=== PATIENT | female | born 1945 | race Caucasian/White ===

== ENCOUNTER 2017-12-16 18:32 | Emergency (ER) | payer OTHER ==
[~2017-12-16] VITALS: Ht 147.3 cm; Wt 68.5 kg
[~2017-12-16 18:32] MED LIST: ACET325; ACET325 PO; ALBIPROI INH; ALBU.083IS IH; ALBU3IS INH; ALBU90OI INH; ALBU90OI61; ALBU90OI61 INH; ALLO100; ALLO100 PO; ASPI81CH PO; ASPI81EC; ATOR10; ATOR10 PO; AZIT500 PO; Alavert D-12 A1 EACH PO; Aspirin EC325 MG PO; BECL40OI INH; BENZ100A; BENZ100A PO; CITA20 PO; CLOBET30L TOP; CLOP75 PO; DOCU100 PO; ENAL5; ENAL5 PO; ERYT.5TO BOTHEYES; ESCI10 PO; ESOM20; FLUSAL1005 IH; FLUSAL2505 IH; FURO20; FURO20 PO; FURO40; Flonase 0.05% N16 GM; GABA300 PO; GUAI600T33 PO; HYDACE5 PO; HYDACE5325 PO; K-Dur20 MEQ PO; LEVSOD150 PO; LEVSOD50; LOPE2C PO; Levaquin750 MG PO; METO2.5 PO; METO5 PO; MULVITMINF PO; NITR.3SL; NYST100P TOP; Norco 10-325 T1 EACH PO; OLME20; OMEP20ER PO; OXYC10ER; PANT40; PANT40 PO; PENVK500 PO; POTCHL20ER; POTCHL20ER PO; PRED20 PO; RXOXYACE PO; RXPENVK250 PO; SALMOI6.5; SULTRIDS PO; TIOT18 IH; TIOT18 INH; VERA240ER; VERA240ERA PO; Ventolin5 MG/1 ML INH; Verapamil ER200 MG PO; [UNRECOGNIZED DRUG - OTHER]
[2017-12-16] MEDS ORDERED: RISE5 (19:06)
[2017-12-16] MEDS ORDERED: ASPI81CH PO (19:07)
[2017-12-16] MEDS ORDERED: BUSP10 PO (19:08)
[2017-12-16] MEDS ORDERED: Nitrostat0.4 MG SL (19:09)
== END 2017-12-16 20:05 | disposition home or self-care (01) ==
LOC: ER 18:32
DX: M79.672 Pain in left foot (principal); I10 Essential (primary) hypertension; J44.9 Chronic obstructive pulmonary disease, unspecified; F17.200 Nicotine dependence, unspecified, uncomplicated; Z91.09 Other allergy status, other than to drugs and biological substances; Z88.5 Allergy status to narcotic agent; Z88.1 Allergy status to other antibiotic agents; Z88.0 Allergy status to penicillin; Z79.899 Other long term (current) drug therapy; Z79.82 Long term (current) use of aspirin
CPT/HCPCS: 73630; 99283

== ENCOUNTER 2019-03-21 12:45 | Emergency (ER) | payer OTHER ==
[~2019-03-21] VITALS: Ht 147.3 cm; Wt 73.9 kg
[~2019-03-21 12:45] MED LIST changes: -ALBU90OI61 INH; -ALLO100 PO; -ATOR10 PO; -CLOP75 PO; -ESCI10 PO; -FURO20 PO; -Flonase 0.05% N16 GM; -GABA300 PO; -LEVSOD150 PO; -PANT40; -POTCHL20ER PO; +RISE5; -TIOT18 IH; -Ventolin5 MG/1 ML INH; -Verapamil ER200 MG PO
[2019-03-21 13:18] LABS: BASOPHILS ABSOLUTE AUTO 0.04 K/mm3 (0.00-0.23); BASOPHILS PERCENT AUTO 1 % (0-2); EOSINOPHILS ABSOLUTE AUTO 0.17 K/mm3 (0.00-0.68); EOSINOPHILS PERCENT AUTO 2 % (0-6); Hematocrit 39.4 % (33.0-51.0); Hemoglobin 12.7 g/dL (11.5-16.0); IMMATURE GRAN ABSOLUTE AUTO 0.02 K/mm3 (0.00-0.10); IMMATURE GRAN PERCENT AUTO 0 % (0-1); LYMPHOCYTES PERCENT AUTO 18 % (21-46); MONOCYTES ABSOLUTE AUTO 0.52 K/mm3 (0.16-1.47); MONOCYTES PERCENT AUTO 7 % (4-13); Mean Corpuscular HGB 30.6 pg (26.0-34.0); Mean Corpuscular HGB Conc 32.2 g/dL (31.5-36.5); Mean Corpuscular Volume 95 fL (80-100); NEUTROPHILS ABSOLUTE AUTO 5.15 K/mm3 (1.96-9.15); NEUTROPHILS PERCENT AUTO 71 % (41-73); Platelet Count 252 K/mm3 (150-400); RDW Coefficient Variation 14.9 % (11.7-14.2); RDW Standard Deviation 51.8 fL (35.1-46.3); Red Blood Cell Count 4.15 M/mm3 (3.80-5.20)
[2019-03-21 13:28] LABS: Alanine Aminotransfer (ALT/SGP 13 U/L (12-78); Albumin/Globulin Ratio 0.9 (0.8-1.8); Alk Phos 59 U/L (50-136); Anion Gap 6 mmol/L (6-16); Aspartate Aminotrans (AST/SGOT 14 U/L (12-37); Bilirubin, Total 0.7 mg/dL (0.1-1.0); Blood Urea Nitrogen 10 mg/dL (8-24); Bun/Creatinine Ratio 13.8 (12.0-20.0); CO2, Blood 32 mmol/L (21-32); Calcium, Blood 8.4 mg/dL (8.5-10.1); Chloride, Blood 103 mmol/L (98-108); Creatinine, Blood 0.73 mg/dL (0.40-1.00); Globulin, Blood 3.4 g/dL (2.2-4.0); Glomerular Filtration Rate >60 (60-); Glucose, Blood 65 mg/dL (70-99); Sodium, Blood 141 mmol/L (136-145); Total Protein, Blood 6.4 g/dL (6.4-8.2)
== END 2019-03-21 15:00 | disposition left against medical advice (07) ==
LOC: ER 12:45
PROVIDERS: Emergency Medicine
DX: R19.7 Diarrhea, unspecified (principal); R10.9 Unspecified abdominal pain; Z88.5 Allergy status to narcotic agent; Z88.8 Allergy status to other drugs, medicaments and biological substances; Z88.0 Allergy status to penicillin; Z88.1 Allergy status to other antibiotic agents; Z79.899 Other long term (current) drug therapy; Z79.82 Long term (current) use of aspirin; I10 Essential (primary) hypertension; J44.9 Chronic obstructive pulmonary disease, unspecified; F17.210 Nicotine dependence, cigarettes, uncomplicated
CPT/HCPCS: 80053; 85025; 93005; 93010; 99284-25

== ENCOUNTER 2019-03-23 15:47 | Observation (INO) | payer OTHER ==
[~2019-03-23] VITALS: Ht 147.3 cm; Wt 74.3 kg
[2019-03-23 17:24] LABS: BASOPHILS ABSOLUTE AUTO 0.04 K/mm3 (0.00-0.23); BASOPHILS PERCENT AUTO 0 % (0-2); EOSINOPHILS ABSOLUTE AUTO 0.27 K/mm3 (0.00-0.68); EOSINOPHILS PERCENT AUTO 3 % (0-6); Hematocrit 42.4 % (33.0-51.0); Hemoglobin 13.7 g/dL (11.5-16.0); IMMATURE GRAN ABSOLUTE AUTO 0.05 K/mm3 (0.00-0.10); IMMATURE GRAN PERCENT AUTO 1 % (0-1); LYMPHOCYTES ABSOLUTE AUTO 1.54 K/mm3 (0.84-5.20); LYMPHOCYTES PERCENT AUTO 15 % (21-46); MONOCYTES ABSOLUTE AUTO 0.73 K/mm3 (0.16-1.47); MONOCYTES PERCENT AUTO 7 % (4-13); Mean Corpuscular HGB 30.8 pg (26.0-34.0); Mean Corpuscular HGB Conc 32.3 g/dL (31.5-36.5); Mean Corpuscular Volume 95 fL (80-100); NEUTROPHILS ABSOLUTE AUTO 8.01 K/mm3 (1.96-9.15); NEUTROPHILS PERCENT AUTO 75 % (41-73); Platelet Count 308 K/mm3 (150-400); RDW Coefficient Variation 14.6 % (11.7-14.2); RDW Standard Deviation 51.4 fL (35.1-46.3); Red Blood Cell Count 4.45 M/mm3 (3.80-5.20); White Blood Cell Count 10.64 K/mm3 (4.00-11.30)
[2019-03-23 17:46] LABS: Alanine Aminotransfer (ALT/SGP 15 U/L (12-78); Albumin, Blood 3.5 g/dL (3.4-5.0); Alk Phos 72 U/L (50-136); Anion Gap 5 mmol/L (6-16); Aspartate Aminotrans (AST/SGOT 16 U/L (12-37); Bilirubin, Total 0.7 mg/dL (0.1-1.0); Blood Urea Nitrogen 12 mg/dL (8-24); Bun/Creatinine Ratio 13.3 (12.0-20.0); CO2, Blood 33 mmol/L (21-32); Calcium, Blood 9.1 mg/dL (8.5-10.1); Chloride, Blood 101 mmol/L (98-108); Creatinine, Blood 0.91 mg/dL (0.40-1.00); Globulin, Blood 3.6 g/dL (2.2-4.0); Glomerular Filtration Rate >60 (60-); Glucose, Blood 131 mg/dL (70-99); Potassium, Blood 3.4 mmol/L (3.5-5.5); Sodium, Blood 139 mmol/L (136-145); Total Protein, Blood 7.1 g/dL (6.4-8.2)
[2019-03-23 19:21] LABS: Campylobacter Sp Not Detected (NOT DETECT); E. Coli O157 Not Detected (NOT DETECT); Enteroaggregative E. coli-EAEC Detected (NOT DETECT); Plesiomonas Shigelloides Not Detected (NOT DETECT); Salmonella Sp Not Detected (NOT DETECT); Shiga Toxin-prod E. coli-STEC Not Detected (NOT DETECT); Shigella/Enteroin E. coli-EIEC Not Detected (NOT DETECT); Vibrio Cholerae Not Detected (NOT DETECT); Vibrio Sp Not Detected (NOT DETECT); Yersinia Enterocolitica Not Detected (NOT DETECT)
[2019-03-23 19:22] LABS: Adenovirus F 40/41 Not Detected (NOT DETECT); Astrovirus Not Detected (NOT DETECT); Cryptosporidium Not Detected (NOT DETECT); Cyclospora Cayetanensis Not Detected (NOT DETECT); Entamoeba Histolytica Not Detected (NOT DETECT); Enteropathogenic E. coli-EPEC Detected (NOT DETECT); Enterotoxigenic E. coli-ETEC Not Detected (NOT DETECT); Giardia Lamblia Not Detected (NOT DETECT); Norovirus GI/GII Not Detected (NOT DETECT); Rotavirus A Not Detected (NOT DETECT); Sapovirus Not Detected (NOT DETECT)
[2019-03-23] MEDS ORDERED: Isosorbide Mono30 MG PO (20:30)
[2019-03-23] MEDS ORDERED: CLOP75 PO (20:30)
[2019-03-23] MEDS ORDERED: CHOL10002 PO (20:31)
[2019-03-23] MEDS ORDERED: SPIRIVA RESPIMAT4 GM INH (21:12)
[2019-03-23] MEDS ORDERED: Synthroid88 MCG PO (21:13)
[2019-03-23] MEDS ORDERED: FURO80 PO (21:14)
[2019-03-23] MEDS ORDERED: ALLO100 PO (21:14)
[2019-03-23] MEDS ORDERED: GABA300 PO (21:15)
[2019-03-23] MEDS ORDERED: ALBU90OI61 INH (21:15)
[2019-03-23] MEDS ORDERED: ATOR40TA PO (21:15)
[2019-03-23] MEDS ORDERED: POTCHL20ER PO (21:16)
[2019-03-23] MEDS ORDERED: METO2.5 PO (21:16)
[2019-03-23] MEDS ORDERED: Verapamil ER200 MG PO (21:17)
[2019-03-23] MEDS ORDERED: Aspirin EC81 MG PO (21:17)
[2019-03-23] MEDS ORDERED: PANT40 PO (21:17)
[2019-03-23] MEDS ORDERED: BUSP10 PO (21:18)
[2019-03-23] MEDS ORDERED: Advair Hfa 115-12 GM INH (21:21)
[2019-03-23] MEDS ORDERED: ESCI10 PO (21:23)
[2019-03-23] MEDS ORDERED: Ferrous Sulfat325 M2 PO (21:24)
[2019-03-23] MEDS ORDERED: DOCU100 PO (21:25)
[2019-03-23] MEDS ORDERED: Nitrostat0.4 MG SL (21:26)
[2019-03-23] MEDS ORDERED: Flonase 0.05% N16 GM (21:28)
[2019-03-23] MEDS ORDERED: Clotrimazole-Be15 GM TOP (21:32)
[2019-03-23] MEDS ORDERED: ALBU2.5V5 NEB (21:32)
--- NOTE | 2019-03-24 05:48 | NUR ---
SHIFT SUMMARY PT ALERT AND ORIENTED. ADMITTED FOR C-DIFF/COLITIS. PT NOT WANTING TO STAY HERE AT FIRST DEMANDING TO GO OUTSIDE FOR A SMOKE. WARMS UP LATER, DOES REFUSE 2ND DOSE OF IV POTASSIUM. PT C/O GENERALIZED PAIN AND MEDICATED WITH FENTANYL X1. PT SLEPT VERY LITTLE. BRIEFS CHANGED OF INCONTINENT URINE. NO STOOLS SINCE BEING IN THE ER. PT HAS YEASTY AREAS UNDER PANNUS AND BREASTS, ALSO IN AVELINA/GROIN AREA. PT WEAK DUE TO CHRONIC DIARRHEA. STATES SHE HAS HAD IT FOR THE LAST 12 YEARS. PT HAS PRODUCTIVE COUGH PRODUCING THICK BERNAL/GREEN SPUTUM. PT WITH BRUISING SCATTERED DUE TO FALLS. WILL CONTINUE TO MONITOR.
[2019-03-24 05:50] LABS: Hematocrit 36.7 % (33.0-51.0); Hemoglobin 11.7 g/dL (11.5-16.0); Mean Corpuscular HGB 30.3 pg (26.0-34.0); Mean Corpuscular HGB Conc 31.9 g/dL (31.5-36.5); Mean Corpuscular Volume 95 fL (80-100); Mean Platelet Volume 9.9 fL (9.1-12.4); Platelet Count 251 K/mm3 (150-400); RDW Coefficient Variation 14.7 % (11.7-14.2); RDW Standard Deviation 51.5 fL (35.1-46.3); Red Blood Cell Count 3.86 M/mm3 (3.80-5.20); White Blood Cell Count 8.03 K/mm3 (4.00-11.30)
[2019-03-24 06:12] LABS: Anion Gap 1 mmol/L (6-16); Blood Urea Nitrogen 16 mg/dL (8-24); Bun/Creatinine Ratio 18.8 (12.0-20.0); CO2, Blood 32 mmol/L (21-32); Calcium, Blood 8.1 mg/dL (8.5-10.1); Chloride, Blood 107 mmol/L (98-108); Creatinine, Blood 0.85 mg/dL (0.40-1.00); Glomerular Filtration Rate >60 (60-); Glucose, Blood 110 mg/dL (70-99); Potassium, Blood 4.1 mmol/L (3.5-5.5); Sodium, Blood 140 mmol/L (136-145)
--- NOTE | 2019-03-24 09:07 | NUR ---
PT AROUSED FOR BF. WHEN ATTEMPT TO DO PHYSICAL ASSESSMENT SHE REFUSES, REFUSES AM MEDS. STATE "GO SOMEWHERE ELSE, YOU HAVE OTHER PT'S WHO NEED YOU", WHEN ATTEMPT TO ENCOURAGE HER TO TAKE MEDS & ALLOW ASSESSMENT SHE BECOME VERY ANGRY, STATE SHE WILL NOT ALLOW, YELLS "GET OUT OF MY ROOM". ENCOURAGED HER TO CALL IF SHE CHANGES HER MIND, WILL NOTIFY DR & TUBING TESTER.
--- NOTE | 2019-03-24 10:48 | NUR ---
POLO COACH IN TO ROUND ON PT & ATTEMPT TO DISCERN WHY PT IS ANGRY & REFUSING MEDS/ASSESSMENTS. STATE PT ALLOWED HER & FEMALE TEST OPERATOR TO CHANGE ATTENDS HOWEVER PT THREATENED TO HIT DURING PROCEDURE. DISCOVERED THAT PT IS UPSET WITH CARDIAC DIET. SHE CONTINUES TO REFUSE MEDS & ASSESSMENT. DR ASTUDILLO NOTIFIED, STATE SHE WILL BE IN TO SEE PT & ADDRESS CONCERNS & DIET @ THAT TIME.
--- NOTE | 2019-03-24 12:26 | NUR ---
PT CONTINUES TO REFUSE MEDS & TX. STATE "GO AWAY", REFUSE ENTEROSTOMAL NURSE ALSO. DR ASTUDILLO AWARE. FACING SLITTER STATE PT DECLINE CARDIAC DIET LUNCH TRAY, STATES "GARBAGE", "THIS PLACE IS A DUMP".
--- NOTE | 2019-03-24 13:47 | NUR ---
DR ASTUDILLO IN TO SEE PT, ADDRESS CONCERNS, CHANGE DIET TO REGULAR. PT STATE WILL ACCEPT TX. SHE IS ABLE TO CHANGE ATTITUDE, PLEASANT/COOPERATIVE @ THIS TIME. ACCEPTS ORAL VANCO, ALLOWS ASSESSMENT. CALLED COORDINATOR VOLUNTEER SERVICES TO ADDRESS FOOD CHOICES & MENU, LUNCH TRAY PROVIDED. PT SEEMS SATISFIED @ THIS TIME.
--- NOTE | 2019-03-24 15:47 | NUR ---
PT CALL FOR ATTENDS CHANGE, HOWEVER WHEN ATEMPT TO LAY PT BACK IN BED, SHE BECOMES ANGRY, REFUSES. ATTEMPTS TO CONSOLE HER & PLEASE HER UNSUCCESSFUL, SHE STATE "GET OUT". INFORMED OF RISK FOR FURTHER SBD HOWEVER SHE REFUSES TO DISCUSS. CIGARETTE CARTON SEALER NOTIFIED, STATE WILL GIVE HER SOME TIME & RE-ATTEMPT LATER.
--- NOTE | 2019-03-24 16:22 | NUR ---
MEDICAL RECORDS DIRECTOR IN TO ENCOURAGE PT TO ALLOW ATTENDS CHANGE HOWEVER STATE PT CONTINUES TO REFUSE, WILL NOT TALK & DEMANDS HER TO BE LEFT ALONE. WILL CONTINUE TO ENCOURAGE PT & ATTEMPT TO SATISFY.
--- NOTE | 2019-03-24 18:14 | NUR ---
SUMMARY PT IS A/O X4, IRRITABLE, DIFFICULT TO SATISFY @ X'S, @ OTHER X'S PLEASANT, COOPERATIVE. SHE BECAME VERY UPSET THIS AM R/T CARDIAC DIET ORDER, REFUSED TO EAT, REFUSED MEDS, ASSESSMENT & ATTENDS CHANGE. PHARMACEUTICAL REPRESENTATIVE WAS FINALLY ABLE TO GET HER TO ALLOW ATTENDS CHANGE, INCONT DIARRHEA. SHE IS C-DIFF+. DR ASTUDILLO CAME TO SEE HER AFTER LUNCH, HAD LONG TALK WITH HER. PT STATE SATISFACTION WITH DIET CHANGE, WAS ABLE TO FILL OUT MENU WITH HOME HEALTH ASSISTANT. AGREED TO TAKE SOME OF HER MEDS INCLUDING ORAL VANCO. LATER IN THE AFTERNOON SHE CALLED FOR ATTENDS CHANGE, WHEN WE ATTEMPTED TO LOWER HEAD OF BED SHE BECAME IRRITATED, ANGRY. AGAIN SHE REFUSED TREATMENT, REQUEST STAFF LEAVE HER ALONE, LEAVE ROOM. CHARGE ALSO UNSUCCESSFUL IN ATTEMPTS TO PROVIDE CARE. @ DINNER PT AGAIN SEEMS RECEPTIVE, ACCEPTS DINNER, STATE FOOD SATISFACTORY. ASKED IF SHE WOULD ALLOW US TO CHANGE ATTENDS SHE STATE "WE'LL SEE", REFUSES @ THIS TIME, WILL ATTEMPT AGAIN PRIOR TO SHIFT CHANGE. VSS.
--- NOTE | 2019-03-25 07:11 | NUR ---
Rn summary: Patient is alert and oriented. Pt has been cooperative most of the night. Did refuse some medications due to the fact they are timed different than she is used to. Explained why times would be different, pt still refused meds. Pls see emar. Pt does not like head of bed down, did allow it for repositioning up in bed. Pt has been incontinent of urine, urine is dk and has a very strong odor. Pt has had no stools this shift. Pt has a mepilex to coccyx. Pt skin to buttocks is purplish. Pt was floated on pillows, pt states can not lie on left side. Pt medicated x1 with 25mg of fentanyl with good relief at 0253 and slept until 0630. Call light in reach. Report to Joaquin Harris on day shift.
[2019-03-25] MEDS ORDERED: VITAMIN D50000 UNIT PO (08:15)
--- NOTE | 2019-03-25 12:44 | NUR ---
PT TO IMAGING.
--- NOTE | 2019-03-25 17:43 | NUR ---
SHIFT SUMMARY- PT A/O, PT HAS BEEN COOPERATIVE T/O THE DAY BUT DOES HAVE MOMENTS OF IRRITABILITY AND RUDE TO STAFF. LS COARSE, ON 2L WHICH IS PT'S BASELINE, PRODUCTIVE COUGH WHICH PT REPORTS SHE HAS HAD FOR YEARS. PT STARTED ON PERCOCET FOR PAIN "ALL OVER" PT REPORTS IMPROVEMENT. CT SCAN COMPLETED TODAY DUE TO RECENT FALL AND BRUISING TO LEFT HIP. 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 PT REPORTS SHE LIVES ALONE AND HAS A CAREGIVER 5 DAYS A WEEK FOR 5 HOURS AND DOES HAVE KIDS THAT CHECK IN ON HER BUT REPORTS SHE CAN NO LONGER TRANSFER HER SELF INDEP INTO HER W/C. PT EVAL ORDERED BUT NOT SEEN TODAY. YEAST TO GROIND AND UNDER BREAST, NYSTATIN ORDERED AND APPLIED. PT INCONT OF URINE, COCCYX RED/ PURPLE IN COLOR, MEPILEX PLACED. NO STOOLS THIS SHIFT. NO OTHER ACUTE CHANGES THIS SHIFT.
--- NOTE | 2019-03-25 18:04 | NUR ---
PATIENTS ATTENDS WERE CHECKED AND THEY WERE CLEAN AND DRY. PATIENT WAS ALSO REPOSITONED.
--- NOTE | 2019-03-25 18:14 | NUR ---
BP NOTED TO BE 94/49, PT REPORTS THAT THIS IS NORMAL FOR HER TO DROP INTO THE 90'S. WILL CONT TO MONITOR. PT ASYMPTOMATIC.
--- NOTE | 2019-03-26 07:24 | NUR ---
Rn summary: Patient was up to BSC at beginning of shift. Pt has difficulty bearing wt. Pt states she is mean and contankerous and she likes control of all her care. Pt actually has rested well this shift but woke up with significant pain this am. Medicated with percocet 1 tab this am for pain from her mid back down. Pt was incontinent of urine, urine is concentrated and has a strong odor. Wears attends. Call lght in reach. Continues on 2 liters O2 which is her baseline. Plan for PT eval today.
--- NOTE | 2019-03-26 19:15 | NUR ---
NO ACUTE CHANGES NOTED THIS SHIFT, PT COOPERATIVE WITH CARE T/O THE SHIFT, NO C/O PAIN. WILL CONTINUE TO MONITOR AND REPORT TO ONCOMING RN
--- NOTE | 2019-03-26 23:29 | NUR ---
2255 PT ADMITTED TO ROOM 334 PER CART FROM ER WITH AND DAUGHTER AT SIDE, ORIENTED TO ROOM.
--- NOTE | 2019-03-27 00:56 | NUR ---
THIS NURSE AND YENI CALLED TO ROOM TO CHANGE PATIENT AND REPOSITION, PT CUSSING AND SWEARING AT STAFF IN LOUD VOICE AND STATED, "I DON'T GIVE A GOD DAMN ABOUT ANYTHING HERE IN THIS HOSPITAL". PT INITIALLY DESIRED TO LAY IN DIRTY ATTENDS DIAPERS WITH LARGE AMOUNT BROWN, MUCOUS STOOL WHICH SHE FINALLY RELENTED TO LETTING STAFF CHANGE AND REPOSITION HER ONTO RIGHT SIDE, LINEN CHANGED. PT REMINDED BY THIS NURSE TO AVOID SWEARING AT STAFF WHICH SHE THEN REMARKED, "I DON'T CARE" IN LOUD VOICE.
--- NOTE | 2019-03-27 05:18 | NUR ---
SHIFT SUMMARY: 73 Y/O FEMALE HAD RESTLESS NIGHT AT TIMES WITH PATIENT VERY VOCAL WITH LOUD SWEARING (PATIENT APOLGIZED TO THIS NURSE AT END OF SHIFT FOR BEHAVIOR DISPLAYED). PT HAD BACK RATED 6/10 WITH OXYCODONE 10/325 MG X 1 GIVEN WITH RELIEF FELT. PT INCONTINENT MUCOUS BROWN STOOL X 3. PT ALERT AND ORIENTED X 4, WEARING O2 AT 3L/M PER NASAL CANNULA. PTS BED ALARM APPLIED, BED LOW POSITION, CALL LIGHT AT SIDE. CONTACT PRECAUTIONS MAINTAINED. PT REQUIRED 100% ASSISTANCE TO ROLE BACK AND FORTH BY STAFF WITH ALL INCONTINENCE EPISODES.
[2019-03-27] MEDS ORDERED: ACET325 PO (15:04)
[2019-03-27] MEDS ORDERED: Lomotil Tablet1 EACH PO (15:05)
[2019-03-27] MEDS ORDERED: Percocet 10-321 EACH PO (15:05)
--- NOTE | 2019-03-27 16:44 | NUR ---
REPORT TO REPORT CALLED TO CARMINA WEINSTEIN AT [facility]. QUESTIONS ANSWERED AND PHONE NUMBER LEFT IN CASE OF FURTHER QUESTIONS.
--- NOTE | 2019-03-27 17:52 | NUR ---
DISCHARGE TO [facility] PT REFUSING TO GET UP TO WHEELCHAIR, YELLING AND CURSING AT STAFF, DID NOT WANT TO BE DISCHARGED. EARLIER SHE WAS EXPRESSING READINESS FOR DISCHARGE. TRANSPORTER BROUGHT A GURNEY AND PT WAS TRANSFERRED. SHE WAS POLITE AND CONVERSING WITH TRANSPORTER WHEN SHE LEFT. PERSONAL BELONGINGS, HER W/C AND PORTABLE O2 CONCENTRATOR WITH PT.
== END 2019-03-27 17:35 ==
LOC: ER 15:47 → MEDS 21:10
PROVIDERS: Emergency Medicine; Nurse Practitioner Acute Care; Physician Assistant; ADMIT Internal Medicine
DX: A04.72 Enterocolitis due to Clostridium difficile, not specified as recurrent (principal); A04.4 Other intestinal Escherichia coli infections; F32.9 Major depressive disorder, single episode, unspecified; K21.9 Gastro-esophageal reflux disease without esophagitis; E03.9 Hypothyroidism, unspecified; J44.9 Chronic obstructive pulmonary disease, unspecified; I11.0 Hypertensive heart disease with heart failure; I50.32 Chronic diastolic (congestive) heart failure; Z79.899 Other long term (current) drug therapy; Z79.82 Long term (current) use of aspirin; Z79.02 Long term (current) use of antithrombotics/antiplatelets; Z88.1 Allergy status to other antibiotic agents; Z91.041 Radiographic dye allergy status; Z88.0 Allergy status to penicillin; F17.210 Nicotine dependence, cigarettes, uncomplicated; I25.10 Atherosclerotic heart disease of native coronary artery without angina pectoris
CPT/HCPCS: 0097U; 36415; 71045; 71250; 72131; 72192; 74176; 80048; 80053; 83690; 83880; 84145; 85025; 85027; 87324; 93005; 93010; 94760; 96361; 96365; 96372; 96375; 96376; 97110; 97162; 97530; 99285-25; G0378; J1650; J3010; J3480; J7030

== ENCOUNTER 2019-12-18 13:59 | Inpatient (IN) | payer OTHER ==
[~2019-12-18] VITALS: Ht 152.4 cm; Wt 63.1 kg
[~2019-12-18 13:59] MED LIST changes: +ALBU2.5V5 NEB; +ALBU90OI61 INH; +ALLO100 PO; +ATOR40TA PO; +Advair Hfa 115-12 GM INH; +Aspirin EC81 MG PO; +BUSP10 PO; +CHOL10002 PO; +CLOP75 PO; +Clotrimazole-Be15 GM TOP; +ERGO50000 PO; +ESCI10 PO; +FURO80 PO; +Ferrous Sulfat325 M2 PO; +Flonase 0.05% N16 GM; +GABA300 PO; +Isosorbide Mono30 MG PO; +Lomotil Tablet1 EACH PO; +Nitrostat0.4 MG SL; +POTCHL20ER PO; +Percocet 10-321 EACH PO; +Percocet 5-3251 EACH PO; +SPIRIVA RESPIMAT4 GM INH; +Synthroid88 MCG PO; +Verapamil ER200 MG PO
[2019-12-18 18:10] LABS: BASOPHILS ABSOLUTE AUTO 0.04 K/mm3 (0.00-0.23); BASOPHILS PERCENT AUTO 1 % (0-2); EOSINOPHILS ABSOLUTE AUTO 0.33 K/mm3 (0.00-0.68); EOSINOPHILS PERCENT AUTO 4 % (0-6); Hematocrit 38.7 % (33.0-51.0); Hemoglobin 12.7 g/dL (11.5-16.0); IMMATURE GRAN ABSOLUTE AUTO 0.02 K/mm3 (0.00-0.10); IMMATURE GRAN PERCENT AUTO 0 % (0-1); LYMPHOCYTES ABSOLUTE AUTO 2.45 K/mm3 (0.84-5.20); LYMPHOCYTES PERCENT AUTO 30 % (21-46); MONOCYTES ABSOLUTE AUTO 0.48 K/mm3 (0.16-1.47); MONOCYTES PERCENT AUTO 6 % (4-13); Mean Corpuscular HGB 30.5 pg (26.0-34.0); Mean Corpuscular HGB Conc 32.8 g/dL (31.5-36.5); Mean Corpuscular Volume 93 fL (80-100); Mean Platelet Volume 9.8 fL (9.1-12.4); NEUTROPHILS ABSOLUTE AUTO 4.77 K/mm3 (1.96-9.15); NEUTROPHILS PERCENT AUTO 59 % (41-73); Platelet Count 356 K/mm3 (150-400); RDW Coefficient Variation 13.4 % (11.7-14.2); RDW Standard Deviation 45.4 fL (35.1-46.3); Red Blood Cell Count 4.16 M/mm3 (3.80-5.20); White Blood Cell Count 8.09 K/mm3 (4.00-11.30)
[2019-12-18 18:25] LABS: International Normalized Ratio 0.96; Prothrombin Time Results 10.3 Sec (9.7-11.5)
[2019-12-18 18:29] LABS: Alanine Aminotransfer (ALT/SGP 10 U/L (12-78); Albumin/Globulin Ratio 0.8 (0.8-1.8); Alk Phos 72 U/L (50-136); Anion Gap 6 mmol/L (6-16); Aspartate Aminotrans (AST/SGOT 19 U/L (12-37); Bilirubin, Total 0.3 mg/dL (0.1-1.0); Blood Urea Nitrogen 24 mg/dL (8-24); CO2, Blood 26 mmol/L (21-32); Calcium, Blood 9.1 mg/dL (8.5-10.1); Chloride, Blood 107 mmol/L (98-108); Creatinine, Blood 0.75 mg/dL (0.40-1.00); Globulin, Blood 3.9 g/dL (2.2-4.0); Glomerular Filtration Rate >60 (60-); Glucose, Blood 138 mg/dL (70-99); Potassium, Blood 3.6 mmol/L (3.5-5.5); Sodium, Blood 139 mmol/L (136-145); Total Protein, Blood 6.9 g/dL (6.4-8.2)
--- NOTE | 2019-12-18 22:05 | NUR ---
PATIENT ARRIVED TO ICU 9 VIA BED FROM TRAILER MECHANIC POST THROMBECTOMY TO LEFT LEG AND IVC FILTER ACCESS RIGHT GROIN. PATIENT PLACED ON ICU MONITORS. PATIENT AWAKE AND ABLE TO ANSWER ADMIT QUESTIONS, BECOMING AGITATED WITH QUESTIONS AT TIMES. PATIENT REQUESTING SOMETHING TO EAT, BUT NOT WANTING WHAT WE HAVE AVAILABLE IN PANTRY, EXPLAINED TO PATIENT THAT THE KITCHEN IS CLOSED, PATIENT BECOMING ANGRY AND REFUSING ALL OFFERS OF FOOD AND DRINK, PATIENT VERBALIZED "I DON'T WANT ANYTHING THAN" PATIENT EATING COOKIES, AND BOTTLED WATER FROM HER PURSE, "I DON'T WANT ANYTHING FROM YOU". HEPARIN DRIP STARTED PER TRAILER MECHANIC AND DOCTOR EMMANUEL.
--- NOTE | 2019-12-18 23:00 | NUR ---
PATIENT C/O BACK AND HIP PAIN, REFUSING TYLENOL. CRISTOFER SOLDERER TORCH CALLED AND PERCOCET PO ORDERED. PATIENT REF MEDICATION AT THIS TIME. "I JUST WANT TO GO HOME" PATIENT DENIES URGE TO URINATE AT THIS TIME. ATTENDS IN PLACE. RIGHT GROIN AND LEFT KNEE SITES REMAIN STABLE.
[2019-12-18] MEDS ORDERED: FURO40 PO (23:09)
[2019-12-18] MEDS ORDERED: GABA300 PO (23:09)
--- NOTE | 2019-12-19 01:00 | NUR ---
PATIENT SLEEPING WITH 2L/NC IN PLACE. BIOX 88% WHILE SLEEPING ON RA. AWAKENS EASILY TO SLIGHT STIMULI. BOTH SITES REMAIN UNCHANGED
--- NOTE | 2019-12-19 04:20 | NUR ---
PATIENT AWAKE C/O PAIN, AT FIRST REFUSING ASSISTANCE WITH REPOSITIONING AND REFUSING PAIN MEDICATION. DENIES URGE TO URINATE AT THIS TIME. PATIENT ANGRY REGARDING HEART MONITOR AND BP CUFF, CUFF CHANGED TO WRIST CUFF AND CORDS ADJUSTED TO PREVENT PULLING. PATIENT AGREEING TO REPOSITIONING, AND GIVEN PERCOCET. PATIENT ALLOWING LEFT LEG TO BE ELEVATED ON PILLOW IN ATTEMPT TO RELIEVE PAIN. SNACK OF PEACHES GIVEN. GROIN AND KNEE SITE REMAIN STABLE
[2019-12-19 05:21] LABS: BASOPHILS ABSOLUTE AUTO 0.05 K/mm3 (0.00-0.23); BASOPHILS PERCENT AUTO 1 % (0-2); EOSINOPHILS ABSOLUTE AUTO 0.32 K/mm3 (0.00-0.68); EOSINOPHILS PERCENT AUTO 5 % (0-6); Hemoglobin 11.6 g/dL (11.5-16.0); IMMATURE GRAN ABSOLUTE AUTO 0.02 K/mm3 (0.00-0.10); IMMATURE GRAN PERCENT AUTO 0 % (0-1); LYMPHOCYTES ABSOLUTE AUTO 1.57 K/mm3 (0.84-5.20); LYMPHOCYTES PERCENT AUTO 24 % (21-46); MONOCYTES ABSOLUTE AUTO 0.55 K/mm3 (0.16-1.47); MONOCYTES PERCENT AUTO 8 % (4-13); Mean Corpuscular HGB 30.1 pg (26.0-34.0); Mean Corpuscular HGB Conc 32.2 g/dL (31.5-36.5); Mean Corpuscular Volume 94 fL (80-100); Mean Platelet Volume 9.5 fL (9.1-12.4); NEUTROPHILS ABSOLUTE AUTO 4.05 K/mm3 (1.96-9.15); NEUTROPHILS PERCENT AUTO 62 % (41-73); Platelet Count 293 K/mm3 (150-400); RDW Coefficient Variation 13.5 % (11.7-14.2); RDW Standard Deviation 46.1 fL (35.1-46.3); Red Blood Cell Count 3.85 M/mm3 (3.80-5.20); White Blood Cell Count 6.56 K/mm3 (4.00-11.30)
[2019-12-19 05:51] LABS: Anion Gap 4 mmol/L (6-16); Blood Urea Nitrogen 21 mg/dL (8-24); Bun/Creatinine Ratio 26.1 (12.0-20.0); CO2, Blood 29 mmol/L (21-32); Calcium, Blood 8.5 mg/dL (8.5-10.1); Chloride, Blood 107 mmol/L (98-108); Creatinine, Blood 0.81 mg/dL (0.40-1.00); Glomerular Filtration Rate >60 (60-); Glucose, Blood 110 mg/dL (70-99); Sodium, Blood 140 mmol/L (136-145)
[2019-12-19 05:58] LABS: Thyroid Stimulating Hormone 0.101 uIU/mL (0.360-4.800)
--- NOTE | 2019-12-19 06:42 | NUR ---
PATIENT RESTING QUIETLY WATCHING TV. ASKING WHEN THE DOCTORS MAKE ROUNDS SO SHE CAN GO HOME. CONTINUES TO DENIES URGE TO URINATE, ATTENDS REMAIN DRY. PATIENT APPEARS MORE COMFORTABLE CONTINUES TO RATE PAIN 9/10. RIGHT GROIN AND LEFT KNEE SITE REMAIN STABLE. HEPARIN ADJUSTED PER PHARMACY.
--- NOTE | 2019-12-19 07:26 | NUR ---
ASSUMED CARE: PT RESTING IN BED, HUNCHED OVER, STATES SHE CAN'T GET COMFORTABLE. OFFERED TO GET HER REPOSITIONED IN BED AND SHE BEGAN YELLING AT STAFF. WHEN OFFERING INTERVENTIONS SHE BEGAN TO COVER HER EARS. STATED SHE WANTS TO GO HOME AND THAT SHE'S HUNGRY. INFORMED THAT BREAKFAST WAS COMING SOON AND SHE STATED THAT THEY NEVER HAVE ANYTHING SHE LIKES ANYWAY. LEFT LEG WITH FAINT PULSES, RED BUT NIGHT RN REPORTS SWELLING LESS. DENIES NEEDS AT THIS TIME.
--- NOTE | 2019-12-19 08:12 | NUR ---
DR ADAMS HERE TO SEE PT, AWARE OF PT REFUSING TREATMENTS AND CARE AND WANTS TO GO HOME. WILL SEE WHAT DR BENITEZ THINKS.
--- NOTE | 2019-12-19 08:30 | NUR ---
CAME INTO ROOM WITH PT'S MEDS. PT STATED SHE NEEDED IMDUR BUT STATED SHE HAS HAD AN EMPTY STOMACH. OFFERED FRUIT CUP SINCE SHE REFUSED BREAKFAST THEN PT STATED THAT SHE DIDN'T WANT ANYTHING AND JUST WANTED TO GO HOME. PT STATED SHE NEEDED HER LOMOTIL AND WHEN ASKED IF SHE WANTED THAT WELL SHE SAID "FORGET IT. I DON'T WANT ANYTHING." THIS RN TOLD PT THAT SHE NEEDED TO COMMUNICATE HER NEEDS BECAUSE I CANNOT READ HER MIND AND ANYTIME I ASK A QUESTION SHE SHUTS DOWN. SHE SAID SHE SHUTS DOWN AT HOME TOO AND DOESN'T COMMUNICATE WELL. ASKED HER WHAT WE NEEDED TO DO SO THAT WE WOULD HAVE GOOD COMMUNICATION TODAY AND SHE SAID "NOTHING. I JUST WANT TO GO HOME."
--- NOTE | 2019-12-19 10:00 | NUR ---
NOTED THAT PT HAS NOT VOIDED SINCE YESTERDAY. DISCUSSED WITH PT WHO STATED SHE DIDN'T HAVE TO GO TO THE BATHROOM. THEN TOLD HER THAT WE WOULD BLADDER SCAN WITH A RESULT OF 400. TOLD PT WE NEEDED TO GET HER TO THE BATHROOM WHICH SHE REFUSED AT FIRST. TOLD HER THAT DR BENITEZ WOULD WANT TO KNOW IF SHE HAD BEEN UP OUT OF BED AND AT LEAST MEETING HER HOME BASELINE. PT AGREED TO GET INTO WHEELCHAIR AND USE BEDSIDE COMMODE. 30OCC URINE OUT. PT NOW SITTING IN CHAIR. WARNED HER THAT WE WERE UNSURE WHEN DR WOULD ARRIVE SINCE HE HAS PROCEDURES PLANNED ALL DAY. SHE THEN BECAME TEARFUL AND SAID SHE'LL LEAVE IF SHE HAS TO WAIT TOO LONG. LEFT A MESSAGE FOR DR BENITEZ AND WARNED THAT PT IS THREATENING TO LEAVE AMA. PT SITTING IN WHEEL CHAIR AT THIS TIME WATCHING TV
--- NOTE | 2019-12-19 15:07 | NUR ---
PT CALLED RN INTO ROOM AND STATED SHE WAS LEAVING AND WAS TIRED OF WAITING. CALLED DR BENITEZ AND LEFT MESSAGE. CALLED DR ADAMS TO INFORM HIM THAT PT WAS THREATENING TO LEAVE AMA. DR ADAMS ARRIVED WITH A SCRIPT FOR XARELTO FOR PATIENT AND PATIENT WAS INSTRUCTED THAT IT WAS ONLY A TEMPORARY PERSCRIPTION THAT SHE NEEDED TO HAVE HER PCP REORDER. PT WAS ON THE PHONE WITH HER FAMILY WHEN THIS WAS DISCUSSED. PATIENT THEN HUNG UP AND TOLD THIS RN THAT THE RN GOT HER IN TROUBLE BECAUSE HER FAMILY HEARD THAT SHE WOULD NOT GET SIGNED OUT BY A DOCTOR WHICH IS A NO NO. PT SAID SHE NEEDED TO GO OUT TO SMOKE SO SHE WANTED TO BE LEAVE. ASSISTED IN GETTING DRESSED AND PUSHED HER OUT IN A WHEEL CHAIR. PT INSISTED ON BEING DROPPED OFF IN SMOKING AREA WHICH DID NOT OCCUR. PT WAS DROPPED OFF AT THE CURB NEXT TO THE TENT, SAID SHE WOULD CALL HER FAMILY BUT WAS MAD THAT WE DID NOT TAKE HER TO THE SMOKING AREA. NURSING DATABASE MANAGER, APPAREL FASHION DESIGNER AND JIMI WALLACE
--- NOTE | 2019-12-19 16:24 | NUR ---
Initial spiritual care note: Mrs. Fall and Vanessa had an easy rapport. She felt comfortable enough to share her life review which included a great deal of physical and emotional pain. she was often tearful. she reports a strong leslye and credits this for giving her the strength to continue. she responded well to theraputic listening, emotional affirmation, and gentle bereavement debt management counselor. She appears rather frail, but feels well cared-for by her son who lives with her. She is being d/c'd home soon.
== END 2019-12-19 14:56 | disposition left against medical advice (07) | DRG 271 ==
LOC: ER 13:59 → ICUW 19:51
PROVIDERS: Physician Assistant; ADMIT Internal Medicine
PROC: 04CL3ZZ Extirpation of Matter from Left Femoral Artery, Percutaneous Approach (ICD-10-PCS; principal; 2019-12-18)
PROC: 04CN3ZZ Extirpation of Matter from Left Popliteal Artery, Percutaneous Approach (ICD-10-PCS; 2019-12-18)
PROC: B51C1ZZ Fluoroscopy of Left Lower Extremity Veins using Low Osmolar Contrast (ICD-10-PCS; 2019-12-18)
PROC: 047D3ZZ Dilation of Left Common Iliac Artery, Percutaneous Approach (ICD-10-PCS; 2019-12-18)
PROC: 047F3ZZ Dilation of Left Internal Iliac Artery, Percutaneous Approach (ICD-10-PCS; 2019-12-18)
PROC: 047L3ZZ Dilation of Left Femoral Artery, Percutaneous Approach (ICD-10-PCS; 2019-12-18)
PROC: 06H03DZ Insertion of Intraluminal Device into Inferior Vena Cava, Percutaneous Approach (ICD-10-PCS; 2019-12-18)
DX: I82.412 Acute embolism and thrombosis of left femoral vein (principal); I50.32 Chronic diastolic (congestive) heart failure; Z79.82 Long term (current) use of aspirin; M10.9 Gout, unspecified; K21.9 Gastro-esophageal reflux disease without esophagitis; Z86.73 Personal history of transient ischemic attack (TIA), and cerebral infarction without residual deficits; F17.210 Nicotine dependence, cigarettes, uncomplicated; I48.91 Unspecified atrial fibrillation; J44.9 Chronic obstructive pulmonary disease, unspecified; Z90.49 Acquired absence of other specified parts of digestive tract; E03.9 Hypothyroidism, unspecified; I25.10 Atherosclerotic heart disease of native coronary artery without angina pectoris; Z99.3 Dependence on wheelchair; M62.3 Immobility syndrome (paraplegic)
CPT/HCPCS: 36010; 36012; 36415; 37184; 37191; 37248; 37249; 71045; 75820; 76937; 80048; 80053; 84443; 85025; 85610; 85730; 93971; 94640; 99152; 99153; 99285-25; C1725; C1757; C1769; C1880; C1887; C1894; J1644; J2250; J3010; J7030; Q9967

== ENCOUNTER 2019-12-25 19:21 | Emergency (ER) | payer OTHER ==
[~2019-12-25] VITALS: Ht 147.3 cm; Wt 63.0 kg
[~2019-12-25 19:21] MED LIST changes: +FURO40 PO
[2019-12-25] MEDS ORDERED: XARELTO15 MG PO (19:41)
[2019-12-25] MEDS ORDERED: CLON.5 PO (19:41)
[2019-12-25 19:55] LABS: BASOPHILS ABSOLUTE AUTO 0.05 K/mm3 (0.00-0.23); BASOPHILS PERCENT AUTO 1 % (0-2); EOSINOPHILS ABSOLUTE AUTO 0.53 K/mm3 (0.00-0.68); EOSINOPHILS PERCENT AUTO 6 % (0-6); Hematocrit 36.1 % (33.0-51.0); Hemoglobin 11.6 g/dL (11.5-16.0); IMMATURE GRAN ABSOLUTE AUTO 0.04 K/mm3 (0.00-0.10); IMMATURE GRAN PERCENT AUTO 1 % (0-1); LYMPHOCYTES ABSOLUTE AUTO 2.71 K/mm3 (0.84-5.20); LYMPHOCYTES PERCENT AUTO 32 % (21-46); MONOCYTES ABSOLUTE AUTO 0.57 K/mm3 (0.16-1.47); MONOCYTES PERCENT AUTO 7 % (4-13); Mean Corpuscular HGB Conc 32.1 g/dL (31.5-36.5); Mean Corpuscular Volume 93 fL (80-100); NEUTROPHILS ABSOLUTE AUTO 4.59 K/mm3 (1.96-9.15); NEUTROPHILS PERCENT AUTO 54 % (41-73); Platelet Count 338 K/mm3 (150-400); RDW Coefficient Variation 14.1 % (11.7-14.2); RDW Standard Deviation 47.7 fL (35.1-46.3); Red Blood Cell Count 3.87 M/mm3 (3.80-5.20); White Blood Cell Count 8.49 K/mm3 (4.00-11.30)
[2019-12-25 20:10] LABS: International Normalized Ratio 1.25; Prothrombin Time Results 13.2 Sec (9.7-11.5)
[2019-12-25 20:22] LABS: Alanine Aminotransfer (ALT/SGP 10 U/L (12-78); Albumin, Blood 3.2 g/dL (3.4-5.0); Alk Phos 72 U/L (50-136); Anion Gap 3 mmol/L (6-16); Aspartate Aminotrans (AST/SGOT 18 U/L (12-37); Bilirubin, Total 0.3 mg/dL (0.1-1.0); Blood Urea Nitrogen 22 mg/dL (8-24); Bun/Creatinine Ratio 24.6 (12.0-20.0); CO2, Blood 29 mmol/L (21-32); Calcium, Blood 9.3 mg/dL (8.5-10.1); Chloride, Blood 107 mmol/L (98-108); Creatinine, Blood 0.89 mg/dL (0.40-1.00); Globulin, Blood 3.3 g/dL (2.2-4.0); Glomerular Filtration Rate >60 (60-); Glucose, Blood 87 mg/dL (70-99); Magnesium, Blood 1.7 mg/dL (1.6-2.4); Potassium, Blood 4.3 mmol/L (3.5-5.5); Sodium, Blood 139 mmol/L (136-145); Total Protein, Blood 6.5 g/dL (6.4-8.2); Troponin I <0.015 ng/mL (0.000-0.040)
== END 2019-12-25 21:40 | disposition home or self-care (01) ==
LOC: ER 19:21
PROVIDERS: Emergency Medicine
DX: R53.1 Weakness (principal); I11.0 Hypertensive heart disease with heart failure; I50.32 Chronic diastolic (congestive) heart failure; I48.91 Unspecified atrial fibrillation; F32.9 Major depressive disorder, single episode, unspecified; E03.9 Hypothyroidism, unspecified; Z86.73 Personal history of transient ischemic attack (TIA), and cerebral infarction without residual deficits; Z86.718 Personal history of other venous thrombosis and embolism; F17.200 Nicotine dependence, unspecified, uncomplicated; Z88.5 Allergy status to narcotic agent; Z88.1 Allergy status to other antibiotic agents; Z79.899 Other long term (current) drug therapy; Z79.82 Long term (current) use of aspirin
CPT/HCPCS: 36415; 80053; 82947; 83735; 83880; 84484; 85025; 85610; 93005; 93010; 99285-25

== ENCOUNTER 2020-03-12 08:01 | Day surgery (SDC) | payer OTHER ==
[~2020-03-12] VITALS: Ht 147.3 cm; Wt 56.0 kg
[~2020-03-12 08:01] MED LIST changes: +CELECOXIB100 MG PO; +CLON.5 PO; +LEVOTHYROXINE100 MCG IM; +METOPROLOL SUCC25 MG PO; +NITR.4SL SL; +NYSTOP15 GM TOP; +POTA10T PO; +TESSALON PERLE100 MG PO; +XARELTO15 MG PO; +XARELTO20 MG PO
--- NOTE | 2020-03-12 11:09 | NUR ---
PT AND SON VERBALIZED UNDERSTANDING OF WRITTEN AND VERBAL D/C INST. IV REMOVED. -BLEEDING OR SWELLING R NECK AREA.
== END 2020-03-12 11:27 | disposition home or self-care (01) ==
LOC: MHTC 08:01
DX: Z46.89 Encounter for fitting and adjustment of other specified devices (principal); J44.9 Chronic obstructive pulmonary disease, unspecified; E03.9 Hypothyroidism, unspecified; I13.0 Hypertensive heart and chronic kidney disease with heart failure and stage 1 through stage 4 chronic kidney disease, or unspecified chronic kidney disease; I50.32 Chronic diastolic (congestive) heart failure; E78.5 Hyperlipidemia, unspecified; I25.10 Atherosclerotic heart disease of native coronary artery without angina pectoris; I25.2 Old myocardial infarction; I82.432 Acute embolism and thrombosis of left popliteal vein; I82.422 Acute embolism and thrombosis of left iliac vein; Z91.14 Patient's other noncompliance with medication regimen; Z91.041 Radiographic dye allergy status; Z88.0 Allergy status to penicillin; Z88.5 Allergy status to narcotic agent; Z88.2 Allergy status to sulfonamides; Z88.1 Allergy status to other antibiotic agents; Z79.899 Other long term (current) drug therapy; Z79.01 Long term (current) use of anticoagulants; Z79.02 Long term (current) use of antithrombotics/antiplatelets; Z86.73 Personal history of transient ischemic attack (TIA), and cerebral infarction without residual deficits
CPT/HCPCS: 37193; 76937; C1769; C1773; C1880; C1894; J1200; J1644; J1720; J7040; Q9967; U0002

== ENCOUNTER 2020-05-27 08:32 | Day surgery (SDC) | payer OTHER ==
[~2020-05-27] VITALS: Ht 147.3 cm; Wt 53.0 kg
[~2020-05-27 08:32] MED LIST changes: -ALBU2.5V5 NEB; +FERSU300 PO; +FLUT1DIS2; -Ferrous Sulfat325 M2 PO; +SPIR25 PO
--- NOTE | 2020-05-27 09:27 | NUR ---
2 RINGS FROM R HAND IN CUP IN PATIENTS PURSE, 12 L EKG DONE PER ORDER, ASA 325 GIVEN PER V/O FROM DR PUENTE WHO IS SEEING PT NOW TO REVIEW PLAN OF CARE
--- NOTE | 2020-05-27 09:35 | NUR ---
OFF LOADED HEELS
[2020-05-27] MEDS ORDERED: XARELTO20 MG (09:41)
--- NOTE | 2020-05-27 11:22 | NUR ---
Pt [place] from [facility] [place]. She is drowsy, cooperative, Pt with 02 @ 3 liters per N/C. Double pillows on back of neck. Pt with bilateral tr-bands which are without hematoma or bleeding pulse present. IV infusing at TKO into right A/c. Pt very upset that she is going to have to have surgery. Pt is tearful.
--- NOTE | 2020-05-27 11:35 | NUR ---
, here speaking to patient in recovery room she has decided to go to [place] for her bypass surgery. Pt is very upset. At this time she is stable awaiting transfer. Report to Wyatt Miller RN. Pt with zoll patches however not attached to zoll. Pt with b/p cuff on right lower leg she has pedal edema as right foot with imprint of shoe being on to tight. Left foot with weeping edema which was present upon admission.
--- NOTE | 2020-05-27 12:54 | NUR ---
PT'S CAREGIVER CALLED TO COME GET BELONGINGS BEFORE PT TRANSFER, PT UPSET SHE CAN'T SMOKE BEFORE TRANSFER TO [facility]
--- NOTE | 2020-05-27 13:14 | NUR ---
Dr. Lenz called at 1310 regarding clarification of orders. Pt to have heparin gtt started after bilateral radial arteries are stable from access. Pt is very agitated however; calmed down talking to family. Wyatt Miller has spoken to care provider who is coming to fruit or nut picker wheelchair and o2 brown tank with bad battery.
--- NOTE | 2020-05-27 13:21 | NUR ---
2 cc air removed from bilateral tr-bands.
--- NOTE | 2020-05-27 14:41 | NUR ---
REPORT CALLED TO ALISSA WEINSTEIN AT [facility] ON THEIR WAY FOR PT HOME FIRE ALARM INSTALLER, 3 CC'S REMOVED FROM TR BANDS BILAT, SITES STABLE, HAVE NOT STARTED HEPARIN GTT R/T TR BANDS ONGOING AND PT'S INABLILITY TO KEEP HER HANDS STILL. CAREGIVER AND SON WITH PT FOR LAST 45M, SON HAS LEFT NOW.
--- NOTE | 2020-05-27 15:17 | NUR ---
[facility] IN PROCESS OF TRANSFER, PT VERY OBSTINATE TO TRANSFER, PT CHANGED, SON PRESENT AND SUGGESTS 1MG ATIVAN, DR PUENTE PREVIOUSLY VETO'D ATIVAN TO REESE WEINSTEIN. TAY'D BY [facility] AT 1521, SON TOOK PT'S WHEELCHAIR AND O2 GENERATOR, AND REST OF BELONGINGS (PURSE W 2 RINGS INSIDE, CELL PHONE, AND OVERNIGHT BAG).
== END 2020-05-27 15:21 | disposition short-term general hospital (02) ==
LOC: MHTC 08:32
DX: I25.118 Atherosclerotic heart disease of native coronary artery with other forms of angina pectoris (principal); Z20.828 Contact with and (suspected) exposure to other viral communicable diseases; I25.82 Chronic total occlusion of coronary artery; I12.9 Hypertensive chronic kidney disease with stage 1 through stage 4 chronic kidney disease, or unspecified chronic kidney disease; Z88.5 Allergy status to narcotic agent; Z88.0 Allergy status to penicillin; Z88.2 Allergy status to sulfonamides; Z91.041 Radiographic dye allergy status; E78.00 Pure hypercholesterolemia, unspecified; E78.5 Hyperlipidemia, unspecified; J44.9 Chronic obstructive pulmonary disease, unspecified; K21.9 Gastro-esophageal reflux disease without esophagitis; Z86.73 Personal history of transient ischemic attack (TIA), and cerebral infarction without residual deficits; F32.9 Major depressive disorder, single episode, unspecified; I25.2 Old myocardial infarction; N18.9 Chronic kidney disease, unspecified; Z79.899 Other long term (current) drug therapy; Z79.01 Long term (current) use of anticoagulants; Z79.02 Long term (current) use of antithrombotics/antiplatelets; F17.210 Nicotine dependence, cigarettes, uncomplicated; I48.0 Paroxysmal atrial fibrillation; I47.1 Supraventricular tachycardia
CPT/HCPCS: 76937; 93005; 93010; 93458; 99152; 99153; C1769; C1894; J1200; J1644; J1720; J2250; J3010; J7030; Q9967; U0002

== ENCOUNTER → 2020-07-17 | Outpatient (CLI) | payer OTHER ==
[~2020-07-17] MED LIST changes: +XARELTO20 MG
== END | disposition home or self-care (01) ==
LOC: LAB SHORT 17:49 → LAB 17:49
DX: E03.9 Hypothyroidism, unspecified (principal)
CPT/HCPCS: 84443

== ENCOUNTER 2020-10-05 14:49 | Inpatient (IN) | payer OTHER ==
[~2020-10-05] VITALS: Ht 147.3 cm; Wt 62.8 kg
[~2020-10-05 14:49] MED LIST changes: -ALBU90OI61 INH; -ALLO100 PO; -Aspirin EC81 MG PO; -Clotrimazole-Be15 GM TOP; -Flonase 0.05% N16 GM; -Isosorbide Mono30 MG PO; -LEVOTHYROXINE100 MCG IM; -Lomotil Tablet1 EACH PO; -METOPROLOL SUCC25 MG PO; -NYSTOP15 GM TOP; -POTA10T PO; -SPIR25 PO; -TESSALON PERLE100 MG PO; -XARELTO20 MG
[2020-10-05 15:22] LABS: BASOPHILS ABSOLUTE AUTO 0.05 K/mm3 (0.00-0.23); BASOPHILS PERCENT AUTO 1 % (0-2); EOSINOPHILS ABSOLUTE AUTO 0.25 K/mm3 (0.00-0.68); EOSINOPHILS PERCENT AUTO 3 % (0-6); Hemoglobin 11.2 g/dL (11.5-16.0); IMMATURE GRAN ABSOLUTE AUTO 0.02 K/mm3 (0.00-0.10); IMMATURE GRAN PERCENT AUTO 0 % (0-1); LYMPHOCYTES ABSOLUTE AUTO 1.12 K/mm3 (0.84-5.20); LYMPHOCYTES PERCENT AUTO 15 % (21-46); MONOCYTES ABSOLUTE AUTO 0.37 K/mm3 (0.16-1.47); MONOCYTES PERCENT AUTO 5 % (4-13); Mean Corpuscular HGB 31.5 pg (26.0-34.0); Mean Corpuscular Volume 99 fL (80-100); Mean Platelet Volume 10.4 fL (9.1-12.4); NEUTROPHILS ABSOLUTE AUTO 5.69 K/mm3 (1.96-9.15); NEUTROPHILS PERCENT AUTO 76 % (41-73); Platelet Count 244 K/mm3 (150-400); RDW Coefficient Variation 13.4 % (11.7-14.2); RDW Standard Deviation 48.5 fL (35.1-46.3); Red Blood Cell Count 3.55 M/mm3 (3.80-5.20)
[2020-10-05 15:24] LABS: PCO2 Arterial 44.6 mmHg (35-45); PO2 Arterial 101 mmHg (80-100); pH Blood Arterial 7.42 (7.35-7.45)
[2020-10-05 15:36] LABS: Alanine Aminotransfer (ALT/SGP 18 U/L (12-78); Albumin, Blood 3.1 g/dL (3.4-5.0); Albumin/Globulin Ratio 0.9 (0.8-1.8); Alk Phos 63 U/L (50-136); Anion Gap 5 mmol/L (6-16); Aspartate Aminotrans (AST/SGOT 20 U/L (12-37); Bilirubin, Total 0.5 mg/dL (0.1-1.0); Blood Urea Nitrogen 14 mg/dL (8-24); Bun/Creatinine Ratio 18.2 (12.0-20.0); CO2, Blood 30 mmol/L (21-32); Chloride, Blood 108 mmol/L (98-108); Creatinine, Blood 0.77 mg/dL (0.40-1.00); Globulin, Blood 3.3 g/dL (2.2-4.0); Glomerular Filtration Rate >60 (60-); Glucose, Blood 97 mg/dL (70-99); Potassium, Blood 4.5 mmol/L (3.5-5.5); Sodium, Blood 143 mmol/L (136-145); Total Protein, Blood 6.4 g/dL (6.4-8.2)
[2020-10-05] MEDS ORDERED: NYSTOP15 GM TOP (16:47)
[2020-10-05] MEDS ORDERED: Flonase 0.05% N16 GM (16:48)
[2020-10-05] MEDS ORDERED: Isosorbide Mono30 MG PO (16:48)
[2020-10-05] MEDS ORDERED: METOPROLOL SUCC25 MG PO (16:49)
[2020-10-05] MEDS ORDERED: DECARA1250 MC1 PO (16:51)
[2020-10-05] MEDS ORDERED: OXYC10TA19 PO (16:52)
[2020-10-05] MEDS ORDERED: ALLO100 PO (16:53)
[2020-10-05] MEDS ORDERED: LEVSOD150 PO (16:54)
[2020-10-05] MEDS ORDERED: LORAZEPAM0.5 MG PO (16:55)
[2020-10-05] MEDS ORDERED: SPIRIVA RESPIMAT4 G3 INH (16:55)
[2020-10-05] MEDS ORDERED: XARELTO20 MG PO (16:56)
[2020-10-05] MEDS ORDERED: ALBU90OI61 INH (16:57)
[2020-10-05] MEDS ORDERED: Aspirin EC81 MG PO (16:58)
[2020-10-05] MEDS ORDERED: GABA300 PO (16:58)
[2020-10-05] MEDS ORDERED: PANT40 PO (16:59)
[2020-10-05] MEDS ORDERED: POTCHL20ER PO (17:00)
[2020-10-05] MEDS ORDERED: SPIR25 PO (17:00)
[2020-10-05 21:20] LABS: Influenza A, PCR Negative (NEGATIVE); Influenza B, PCR Negative (NEGATIVE); Resp Syncytial Virus, PCR Negative (NEGATIVE); SARS-Cov-2 (COVID-19) PCR, MMC Negative (NEGATIVE)
--- NOTE | 2020-10-06 04:11 | NUR ---
SHIFT SUMMARY ASSUMED CARE OF PATIENT @1935, REPORT FROM JS FORRESTER. PATIENT IS ALERT AND ORIENTED, TO ROOM ON STRETCHER AND SLID TO THE BED. PATIENT STATED WHEN SHE GOT TO THE ROOM THAT "SHE WANTS A BIGGER ROOM, THIS ONE IS NOT NORMAL". REASSURED PATIENT SHE WAS IN A NORMAL ROOM. PATIENT DENIED CHEST PAIN/PRESSURE UPON ARRIVAL. PATIENT REPOSITIONED, WARM BLANKETS PROVIDED, OFFERED DISTRACTION FOR DISCOMFORT. WHEN PATIENT ASKED IF THERE WAS ANYTHING WE COULD DO TO HELP HER BE MORE COMFORTABLE SHE WOULD SAY NO THEN START YELLING "HELP ME" WHEN WE LEFT THE ROOM BECAUSE SHE WANTED REPOSITONED AGAIN. CALL LIGHT TEACHING PROVIDED AGAIN AND PATIENT REPOSITIONED. 2157- CRITICAL LABE VALUE TROPONIN OF 3.47. ASSESSED PATIENT, PATIENT DENIES CP/PRESSURE, HR 70s-80s. PATIENT STATES SHE IS SLIGHTLY SOB, 02 SATS >95% ON 3L VIA NC. ASKED PATIENT IF SHE WANTED A BREATHING TREATMENT AND SHE REFUSED. CALLED, HEPARIN, CARDIOLOGY CONSULT, AND TROPONIN LABS ORDERED. 2249- PATIENT COMPLAINS OF SHOULDER PAIN THAT RADIATES DOWN HER ARM, NITRO GIVEN, SEE EMAR, AFTER ONE TAB PT DENIES ANY SHOULDER PAIN. PATIENT MEDICATED PER EMAR FOR ANXIETY SHE STATED "I FEEL ANXIOUS" AND MEDICATED PER EMAR FOR BACK/HIP PAIN. PATIENT STATED "YOU ARE NOT DOING ANYTHING TO HELP ME", WHEN ASKED WHAT SHE MEANT OR NEEDED PATIENT STATED "NOBODY CAN HELP ME" AND SAID SHE WAS FINE. PATIENT SLEPT PART OF THE NIGHT WITH NO COMLAINTS OF SHOULDER PAIN OR CP/PRESSURE. VSS, NO ACUTE CHANGES. REPOSITIONED Q2 HOURS, 2 PERSON MAX ASSIST. CALL LIGHT IN REACH.
[2020-10-06 05:53] LABS: BASOPHILS ABSOLUTE AUTO 0.06 K/mm3 (0.00-0.23); BASOPHILS PERCENT AUTO 1 % (0-2); EOSINOPHILS ABSOLUTE AUTO 0.33 K/mm3 (0.00-0.68); EOSINOPHILS PERCENT AUTO 5 % (0-6); Hematocrit 29.9 % (33.0-51.0); Hemoglobin 9.7 g/dL (11.5-16.0); IMMATURE GRAN ABSOLUTE AUTO 0.02 K/mm3 (0.00-0.10); IMMATURE GRAN PERCENT AUTO 0 % (0-1); LYMPHOCYTES ABSOLUTE AUTO 1.99 K/mm3 (0.84-5.20); LYMPHOCYTES PERCENT AUTO 32 % (21-46); MONOCYTES ABSOLUTE AUTO 0.48 K/mm3 (0.16-1.47); MONOCYTES PERCENT AUTO 8 % (4-13); Mean Corpuscular HGB 31.7 pg (26.0-34.0); Mean Corpuscular HGB Conc 32.4 g/dL (31.5-36.5); Mean Corpuscular Volume 98 fL (80-100); Mean Platelet Volume 10.5 fL (9.1-12.4); NEUTROPHILS ABSOLUTE AUTO 3.39 K/mm3 (1.96-9.15); NEUTROPHILS PERCENT AUTO 54 % (41-73); Platelet Count 210 K/mm3 (150-400); RDW Coefficient Variation 13.3 % (11.7-14.2); RDW Standard Deviation 48.1 fL (35.1-46.3); Red Blood Cell Count 3.06 M/mm3 (3.80-5.20); White Blood Cell Count 6.27 K/mm3 (4.00-11.30)
[2020-10-06 06:32] LABS: Alanine Aminotransfer (ALT/SGP 16 U/L (12-78); Albumin, Blood 2.6 g/dL (3.4-5.0); Albumin/Globulin Ratio 0.9 (0.8-1.8); Alk Phos 54 U/L (50-136); Anion Gap 6 mmol/L (6-16); Aspartate Aminotrans (AST/SGOT 26 U/L (12-37); Bilirubin, Total 0.9 mg/dL (0.1-1.0); Blood Urea Nitrogen 15 mg/dL (8-24); Bun/Creatinine Ratio 16.1 (12.0-20.0); CO2, Blood 30 mmol/L (21-32); Calcium, Blood 8.7 mg/dL (8.5-10.1); Chloride, Blood 104 mmol/L (98-108); Creatinine, Blood 0.93 mg/dL (0.40-1.00); Globulin, Blood 2.8 g/dL (2.2-4.0); Glomerular Filtration Rate >60 (60-); Glucose, Blood 74 mg/dL (70-99); Magnesium, Blood 1.6 mg/dL (1.6-2.4); Potassium, Blood 4.2 mmol/L (3.5-5.5); Sodium, Blood 140 mmol/L (136-145); Total Protein, Blood 5.4 g/dL (6.4-8.2)
--- NOTE | 2020-10-06 09:36 | NUR ---
Echocardiogram completed.
--- NOTE | 2020-10-06 10:29 | NUR ---
ASSUME CARE: PT WAS IN BED RESTING DURING REPORT, WAS ASKING FOR FOOD, DRINKS AND CIGARETTE PT GETS EASILY IRRITATED AND FRUSTRATED DURING ASSESSMENTS AND MED PASS, VERY ARGUMENTATIVE WITH MEDS AND CARE PT REFUSED SOME OF HER MORNING MEDS INCLUDING BUMEX, LASIX AND PREDNISONE. PT STATED SHE ONLY TAKES LASIX ON SPECIFIC DAYS A WEEK AT HOME AND DOESN'T WANT TO GO TO THE [facility] TODAY EVEN PT WAS TOLD SHE HAS CATHETER. PT STATED "STOP! I DONT WANT TO LISTEN TO ANYTHING YOU SAY I KNOW WHAT PILLS IM TAKING AT HOME. I JUST WANT TO GO HOME!" PT WAS ASKED AGAIN WHAT PILLS SHE'S TAKING AT HOME AND OFFERED TO HAVE HER TAKE IT WITH HER PAIN PILLS OR NOT, PT STARTED TO CALM DOWN, TOOK SOME OF HER PILLS WITH HER PAIN PILLS. DR JONES WENT AND SEE PT TODAY, NO INTERVENTION TO DO AT THIS POINT HEPARIN GTT WAS STOPPED PT TO START ON XARELTO AND RANEXA. DIET RESUME, PT REFUSED HER BREAKFAST TRAY, OFFERED ANY FOOD BUT IS IRRITATED AND JUST WANT TO BE LEFT ALONE. PT NOW IN BED RESTING C/O LEFT HIP AND LEG PAIN PT REFUSED TO BE REPOSITONED. VITALS HRR 80'S, SATS ABOVE 95% ON 2L OF O2, BP SYSTOLIC 114, AFEBRILE, PT AGREED TO STAY ONE MORE NIGHT AND GO HOME TOMORROW. WILL MONITOR PT UNTIL END OF SHIFT
--- NOTE | 2020-10-06 11:12 | NUR ---
PT WAS OFFERED AGAIN HER BUMEX AND POTASSIUM PT WAS EXPLAINED THE IMPORTANCE AND PT AGREED TO TAKE THEM.
--- NOTE | 2020-10-06 17:28 | NUR ---
PT SUMMARY: SEE PREVIOUS NOTES: PT REFUSED LUNCH STATED SHE EATS REGULAR FOOD AT HOME AND IT SAYS IN HER MEAL TICKET CARDIAC DIET, OFFERED BEEF VEGETABLE SOUP INSTEAD PT WAS ABLE TO FINISH. PT REQUESTED TO GET UP IN A CHAIR TO GET HER FEET DOWN AND DANGLE TO RELIEVE PAIN PT WAS NOT ABLE TO FINISH EVAL THIS AM, BUT PT WAS ABLE TO STAND TRANSFER TO CHAIR VIA 1 PA, WAS ABLE TO TAKE SMALL STEPS. PT RECEIVED A BED BATH IN THE CHAIR PT WAS COOPERATIVE AND CONVERSIVE WITH A CALM AND LOW TONE VOICE APPROACH. VITALS HAS BEEN STABLE, TO MEDICALLY MANAGED AT THIS TIME PER DR JONES, PT DENIES CHEST PAIN/PRESSURE FOR THE SHIFT. PT IS NOW BACK IN BED EATING DINNER, NO OTHER ISSUES ENCOUNTERED FOR THE SHIFT, FOR POSS DC IN AM PT AGREED TO STAY ONE MORE NIGHT AND IS STILL WANTING TO GO HOME TOMORROW. WILL MONITOR UNTIL END OF SHIFT
--- NOTE | 2020-10-06 22:20 | NUR ---
PATIENT ALERT AND ORIENTED. PATIENT IS MORE PLEASANT TODAY, ALTHOUGHT WHEN PROVIDED TEACHING ABOUT MEDICATION PATIENT BECAME IRRITABLE AND ARGUMENTATIVE STATING "I DO NOT LIKE THE DOCTORS CHANGING MY MEDICATIONS", PATIENT UNRECEPTIVE TO TEACHING. DR CALLED DUE TO PATIENT SBP BEING 101 AND NEEDING CLARIFICATION ON PARAMETER FOR IMDUR MEDICATION, EMAR UPDATED AND NEW DOSAGE GIVEN. PATIENT IS NOW RESTING COMFORTABLY. CALL LIGHT IN REACH.
[2020-10-07 04:45] LABS: BASOPHILS ABSOLUTE AUTO 0.03 K/mm3 (0.00-0.23); BASOPHILS PERCENT AUTO 0 % (0-2); EOSINOPHILS ABSOLUTE AUTO 0.29 K/mm3 (0.00-0.68); EOSINOPHILS PERCENT AUTO 4 % (0-6); Hemoglobin 9.7 g/dL (11.5-16.0); IMMATURE GRAN ABSOLUTE AUTO 0.03 K/mm3 (0.00-0.10); IMMATURE GRAN PERCENT AUTO 0 % (0-1); LYMPHOCYTES ABSOLUTE AUTO 2.41 K/mm3 (0.84-5.20); LYMPHOCYTES PERCENT AUTO 33 % (21-46); MONOCYTES ABSOLUTE AUTO 0.59 K/mm3 (0.16-1.47); MONOCYTES PERCENT AUTO 8 % (4-13); Mean Corpuscular HGB 30.3 pg (26.0-34.0); Mean Corpuscular HGB Conc 31.3 g/dL (31.5-36.5); Mean Corpuscular Volume 97 fL (80-100); Mean Platelet Volume 10.5 fL (9.1-12.4); NEUTROPHILS ABSOLUTE AUTO 4.06 K/mm3 (1.96-9.15); NEUTROPHILS PERCENT AUTO 55 % (41-73); Platelet Count 224 K/mm3 (150-400); RDW Standard Deviation 46.3 fL (35.1-46.3); White Blood Cell Count 7.41 K/mm3 (4.00-11.30)
--- NOTE | 2020-10-07 04:58 | NUR ---
SHIFT SUMMARY PATIENT STATED SHE "SLEPT WELL" LAST NIGHT. WAS PLEASANT THROUGH THE NIGHT. REMAINED A&O X4, BUT A LITTLE FORGETFUL AT TIMES. BLOOD PRESSURE 97/47, WILL RECHECK IN APPROX. 1 HOUR. PATIENT HAS BEEN SB IN THE 50s. 02 SATS >95% ON 2-3L VIA NC. REPOSITIONED Q2 HOURS PATIENT TOLERATED. BED IN LOWEST POSITION, CALL LIGHT IN REACH.
[2020-10-07 05:02] LABS: Bun/Creatinine Ratio 14.5 (12.0-20.0); Calcium, Blood 8.5 mg/dL (8.5-10.1); Creatinine, Blood 1.31 mg/dL (0.40-1.00); Potassium, Blood 4.2 mmol/L (3.5-5.5)
[2020-10-07] MEDS ORDERED: TORSE20 PO (11:18)
[2020-10-07] MEDS ORDERED: VISBIOME 112.51 EACH PO (11:19)
--- NOTE | 2020-10-07 11:59 | NUR ---
Spiritual care visit conducted. Patient is sitting on a chair and alert. Patient is a bit prickly up front but softens once the conversation gets going. Patient speaks of her horrible childhood, her current family unit complications and the health issues that plague her daily. Patient shares that she is at peace with and dying and at peace with God. Patient however has a deep concern for two of her grown sons. They live unhealthy lives in several different categories and she fears how they will manage once she dies. She also discusses her fears that her sons will try to over turn her POLST and ACS that are on file which I assure her can't be done. Patient explains about her episcopalian beliefs and how they keep her hopeful and strong. I reinforce helpful attitudes and practices, noramlize her experience and provide therapeutic listening, spiritual guidance and prayer. Patient responds well and shows signs being being encouraged in her leslye. I will continue to remain available to assist with the spiritual/emotional aspects of dealing with pain and terminal illnes.
--- NOTE | 2020-10-07 18:20 | NUR ---
DISCHARGE SUMMARY PT A&Ox4; FORGETFUL AT TIMES. PT ANXIOUS, UNCOOPERATIVE WITH CARE. PT PT NONCOMPLIANT WITH DIET, FLUID RESTRICTION AND MEDICATIONS; REFUSING T/O SHIFT. PT DENIES PAIN, CHEST PAIN, SOB, NAUSEA AND DIZZINESS. ON 2-3L O2 VIA NC AT BASELINE. FRAZIER REMOVED. PT 1-2 PERSON ASSIST WITH WALKER AND GAITBELT. BP SOFT, MAP <65; DR MAYS NOTIFIED, NEW ORDER TO CONTINUE WITH DISCHARGE PLANS. OTHER VSS. PT EDUCATED ON DISCHARGE INSTRUCTIONS, MEDICATIONS AND FOLLOW UP APPOINTMENT. PRESCRIPTIONS CALLED TO [facility] IN [place] PER PT REQUEST. PT LEFT ROOM WITH [facility] WHEELCHAIR TRANSPORT. PT STATES SHE HAS SON AND NEIGHBOR/LANDLORD FOR ASSISTANCE AT HOME.
== END 2020-10-07 16:37 | disposition home health service (06) | DRG 280 ==
LOC: ER 14:49 → PCU 17:33
PROVIDERS: Emergency Medicine; Student in an Organized Health Care Education/Training Program; ADMIT Family Medicine
DX: I11.0 Hypertensive heart disease with heart failure (principal); J96.21 Acute and chronic respiratory failure with hypoxia; I21.4 Non-ST elevation (NSTEMI) myocardial infarction; J18.9 Pneumonia, unspecified organism; I82.512 Chronic embolism and thrombosis of left femoral vein; I50.33 Acute on chronic diastolic (congestive) heart failure; F17.210 Nicotine dependence, cigarettes, uncomplicated; Z99.81 Dependence on supplemental oxygen; Z79.82 Long term (current) use of aspirin; Z86.73 Personal history of transient ischemic attack (TIA), and cerebral infarction without residual deficits; J44.9 Chronic obstructive pulmonary disease, unspecified; G89.29 Other chronic pain; I70.8 Atherosclerosis of other arteries; I48.0 Paroxysmal atrial fibrillation; Z91.19 Patient's noncompliance with other medical treatment and regimen; E78.5 Hyperlipidemia, unspecified; I27.20 Pulmonary hypertension, unspecified; I08.0 Rheumatic disorders of both mitral and aortic valves; Z99.3 Dependence on wheelchair; Z20.822 Contact with and (suspected) exposure to COVID-19
CPT/HCPCS: 0241U; 36415; 36600; 51702; 71046; 80048; 80053; 82803; 83605; 83735; 83880; 84145; 84484; 85025; 85730; 93005; 93010; 93306; 93971; 94640; 94667; 94760; 94762; 96374; 97110; 97162; 97530; 99285-25; A9270; J1644

== ENCOUNTER 2020-10-30 23:43 | Observation (INO) | payer OTHER ==
[~2020-10-30] VITALS: Ht 149.9 cm; Wt 60.4 kg
[~2020-10-30 23:43] MED LIST changes: +ALBU90OI61 INH; +ALLO100 PO; +Aspirin EC81 MG PO; +DECARA1250 MC1 PO; +Flonase 0.05% N16 GM; +Isosorbide Mono30 MG PO; +LEVSOD150 PO; +LORAZEPAM0.5 MG PO; +METOPROLOL SUCC25 MG PO; +NYSTOP15 GM TOP; +OXYC10TA19 PO; +SPIR25 PO; +SPIRIVA RESPIMAT4 G3 INH; +TORSE20 PO; +VISBIOME 112.51 EACH PO
[2020-10-31 00:10] LABS: BASOPHILS ABSOLUTE AUTO 0.03 K/mm3 (0.00-0.23); BASOPHILS PERCENT AUTO 0 % (0-2); EOSINOPHILS ABSOLUTE AUTO 0.04 K/mm3 (0.00-0.68); EOSINOPHILS PERCENT AUTO 1 % (0-6); Hematocrit 37.4 % (33.0-51.0); Hemoglobin 11.9 g/dL (11.5-16.0); IMMATURE GRAN ABSOLUTE AUTO 0.03 K/mm3 (0.00-0.10); IMMATURE GRAN PERCENT AUTO 0 % (0-1); LYMPHOCYTES ABSOLUTE AUTO 1.41 K/mm3 (0.84-5.20); LYMPHOCYTES PERCENT AUTO 18 % (21-46); MONOCYTES ABSOLUTE AUTO 0.34 K/mm3 (0.16-1.47); MONOCYTES PERCENT AUTO 4 % (4-13); Mean Corpuscular HGB 30.3 pg (26.0-34.0); Mean Corpuscular HGB Conc 31.8 g/dL (31.5-36.5); Mean Corpuscular Volume 95 fL (80-100); Mean Platelet Volume 9.9 fL (9.1-12.4); NEUTROPHILS ABSOLUTE AUTO 5.98 K/mm3 (1.96-9.15); NEUTROPHILS PERCENT AUTO 76 % (41-73); Platelet Count 367 K/mm3 (150-400); RDW Coefficient Variation 13.3 % (11.7-14.2); RDW Standard Deviation 47.1 fL (35.1-46.3); Red Blood Cell Count 3.93 M/mm3 (3.80-5.20); White Blood Cell Count 7.83 K/mm3 (4.00-11.30)
[2020-10-31 00:10] LABS: PCO2 Arterial 49.1 mmHg (35-45); PO2 Arterial 74.5 mmHg (80-100); pH Blood Arterial 7.37 (7.35-7.45)
[2020-10-31 00:29] LABS: Albumin, Blood 3.1 g/dL (3.4-5.0); Albumin/Globulin Ratio 0.8 (0.8-1.8); Bilirubin, Total 0.4 mg/dL (0.1-1.0); Bun/Creatinine Ratio 18.3 (12.0-20.0); Calcium, Blood 9.3 mg/dL (8.5-10.1); Creatinine, Blood 1.26 mg/dL (0.40-1.00); Potassium, Blood 4.6 mmol/L (3.5-5.5); Total Protein, Blood 7.1 g/dL (6.4-8.2)
[2020-10-31 01:00] LABS: Influenza A, PCR NEGATIVE (NEGATIVE); Influenza B, PCR NEGATIVE (NEGATIVE); Resp Syncytial Virus, PCR NEGATIVE (NEGATIVE); SARS-Cov-2 (COVID-19) PCR, MMC NEGATIVE (NEGATIVE)
[2020-10-31 03:54] LABS: Blood, Urine Neg (Neg); Glucose Qualitative, Urine Neg (Neg); Ketones, Urine Neg (Neg); Leukocyte Esterase, Urine 1+ (Neg); Nitrite, Urine Neg (Neg); Protein, Urine 2+ (Neg); Source, Urine Catheter; Specific Gravity, Urine 1.025 (1.003-1.022); Urobilinogen, Urine 2+ (Normal)
[2020-10-31 03:59] LABS: Appearance, Urine Hazy (Clear); Bilirubin, Urine 2+ (Neg); Color, Urine Yellow (P-Yellow)
[2020-10-31 04:00] LABS: Amorphous Mod (0-Heavy); Bacteria Few /hpf; Hyaline Casts 50-100 /lpf (0-2); Red Blood Cells, Urine Not Seen /hpf (0-2); Squamous Epithelial Cells Not Seen /hpf (Few)
--- NOTE | 2020-10-31 12:23 | NUR ---
pt in ER pt slightly dyspnic, compains of her nerve pain and general pain. pt very anxious and gets angry easily. Son left for eulogio attempted to discuss her needs. Will return pt to symptomatic and fatigued. Physcian discussed code status. Will see if pt will accept hospice.
[2020-10-31] MEDS ORDERED: Prednisone10 MG PO (12:51)
[2020-10-31] MEDS ORDERED: LIPITOR80 MG PO (12:53)
[2020-10-31] MEDS ORDERED: TESSALON PERLE100 MG PO (12:55)
[2020-10-31] MEDS ORDERED: Clotrimazole-Be15 GM TOP (12:56)
[2020-10-31] MEDS ORDERED: BUME1 PO (12:58)
[2020-10-31] MEDS ORDERED: DIPATR PO (12:59)
--- NOTE | 2020-10-31 13:09 | NUR ---
pt sees a pain specialist in [place] will see if can get inormation. Pt states he has helped he alot with her quality of life and care. Will see if he will discuss hospice with her.
[2020-10-31 13:11] LABS: BASOPHILS ABSOLUTE AUTO 0.04 K/mm3 (0.00-0.23); BASOPHILS PERCENT AUTO 0 % (0-2); EOSINOPHILS ABSOLUTE AUTO 0.27 K/mm3 (0.00-0.68); EOSINOPHILS PERCENT AUTO 3 % (0-6); Hematocrit 28.5 % (33.0-51.0); Hemoglobin 9.1 g/dL (11.5-16.0); IMMATURE GRAN ABSOLUTE AUTO 0.04 K/mm3 (0.00-0.10); IMMATURE GRAN PERCENT AUTO 0 % (0-1); LYMPHOCYTES ABSOLUTE AUTO 2.07 K/mm3 (0.84-5.20); LYMPHOCYTES PERCENT AUTO 22 % (21-46); MONOCYTES ABSOLUTE AUTO 0.66 K/mm3 (0.16-1.47); MONOCYTES PERCENT AUTO 7 % (4-13); Mean Corpuscular HGB 30.2 pg (26.0-34.0); Mean Corpuscular HGB Conc 31.9 g/dL (31.5-36.5); Mean Corpuscular Volume 95 fL (80-100); Mean Platelet Volume 10.4 fL (9.1-12.4); NEUTROPHILS ABSOLUTE AUTO 6.48 K/mm3 (1.96-9.15); NEUTROPHILS PERCENT AUTO 68 % (41-73); Platelet Count 316 K/mm3 (150-400); RDW Coefficient Variation 13.5 % (11.7-14.2); RDW Standard Deviation 46.9 fL (35.1-46.3); Red Blood Cell Count 3.01 M/mm3 (3.80-5.20); White Blood Cell Count 9.56 K/mm3 (4.00-11.30)
[2020-10-31 13:32] LABS: Albumin, Blood 2.6 g/dL (3.4-5.0); Albumin/Globulin Ratio 0.8 (0.8-1.8); Bilirubin, Total 0.4 mg/dL (0.1-1.0); Bun/Creatinine Ratio 22.7 (12.0-20.0); Calcium, Blood 8.7 mg/dL (8.5-10.1); Creatinine, Blood 1.28 mg/dL (0.40-1.00); Globulin, Blood 3.1 g/dL (2.2-4.0); Potassium, Blood 4.7 mmol/L (3.5-5.5); Total Protein, Blood 5.7 g/dL (6.4-8.2)
[2020-10-31 13:51] LABS: Creatine Kinase MB 16.5 ng/mL (0.0-3.6); Creatine Kinase MB Index 3.7 (0.0-4.0)
--- NOTE | 2020-10-31 14:21 | NUR ---
PCU ADMIT: PT ADMITED TO PCU AT 1230 THIS AFTERNOON. SISTER WITH PATIENT ON ARRIVAL. PT ALERT AND ORIENTED X4 ON 3 L O2 SATING ABOVE 92%. TELE SHOWING SINUS RHYTHM WITH HR IN THE 80'S. DENIES CHEST PAIN AT THIS TIME. COMPLAINS OF LOWER BACK PAIN THAT IS CHRONIC. BILATERAL LOWER EXTREMITY REDNESS AND DRY SKIN. PT STATES "I HAVE CELLULITIS ON MY LEFT FOOT". LEFT FOOT COVERED IN DRESSING AT THIS TIME. PLAN TO CLEAN AND APPLY NEW DRESSING. PT STATES SHE HAD "5 BLISTERS AND MY DOG CHEWED THEM". VITAL SIGNS STABLE WITH SLIGHTLY LOWERED BP, WILL CONTINUE TO MONITOR.
--- NOTE | 2020-10-31 17:47 | NUR ---
SHIFT SUMMARY: PT ALERT AND ORIENTED X4. ON 3 L O2 SATING ABOVE 92%. TELE SHOWING SINUS RHYTHM. PT DENIES CHEST PAIN. BILATERAL LOWER EXTREMITIES REDNESS WITH EDEMA TO THE LEFT FOOT. PT COMPLAINS OF PAIN IN LEFT LEG FROM "TOES TO KNEE". DR. MURPHY AWARE OF PAIN AND REDNESS. NEW ORDERS PLACED FOR ANTIBIOTICS. DRESSING ON LEFT FOOT CHANGED AND CLEANED. PT STATES SHE HAD A BLISTER THAT BURST "AND MY DOG CHEWED ON IT". SMALL PINPOINT SCAB ON TOP OF LEFT FOOT. CLEANED WITH SKIN CLEANSER. PT REFUSED TO LEAVE OPENT TO AIR. DRESSED PER PATIENT PREFERENCE. VITAL SIGNS STABLE. WILL CONTINUE TO MONITOR AND REPORT OFF.
[2020-10-31 19:43] LABS: Creatine Kinase MB 13.3 ng/mL (0.0-3.6); Creatine Kinase MB Index 3.2 (0.0-4.0)
--- NOTE | 2020-11-01 04:33 | NUR ---
SHIFT SUMMARY NO ACUTE CHANGES THIS SHIFT. VSS. PT MOOD LABILE, SOMETIMES CRYING SOMETIMS IRRITABLE BUT HAS BEEN APOLOGETIC FOR BOTH MOODS AND HAS BEEN COOPERATIVE WITH CARE. REMAINS SR PACS. ON 2-3LNC SPO2 >94%. PAIN CONTINUES TO BE SEVERE TO L LEG, PAIN MEDS PER EMAR. THIS IS CHRONIC. PT DOES NOT COPE WELL WITH THIS PAIN AT ALL. HEPARIN GTT CONTINUING TO INFUSE PER ORDERS. OTHERWISE, PT BEING TURNED BY STAFF, ATTENDS BEING CHANGED OFTEN AND MEPILEX PLACED DUE TO INCREASING SORENESS TO SACRUM. WILL CONTINUE NGOZI MONITOR UNTIL SHIFT CHANGE.
[2020-11-01 07:57] LABS: BASOPHILS ABSOLUTE AUTO 0.03 K/mm3 (0.00-0.23); BASOPHILS PERCENT AUTO 0 % (0-2); EOSINOPHILS ABSOLUTE AUTO 0.49 K/mm3 (0.00-0.68); EOSINOPHILS PERCENT AUTO 7 % (0-6); Hematocrit 28.3 % (33.0-51.0); Hemoglobin 8.8 g/dL (11.5-16.0); IMMATURE GRAN ABSOLUTE AUTO 0.01 K/mm3 (0.00-0.10); IMMATURE GRAN PERCENT AUTO 0 % (0-1); LYMPHOCYTES ABSOLUTE AUTO 2.19 K/mm3 (0.84-5.20); LYMPHOCYTES PERCENT AUTO 31 % (21-46); MONOCYTES ABSOLUTE AUTO 0.55 K/mm3 (0.16-1.47); MONOCYTES PERCENT AUTO 8 % (4-13); Mean Corpuscular HGB 30.1 pg (26.0-34.0); Mean Corpuscular HGB Conc 31.1 g/dL (31.5-36.5); Mean Corpuscular Volume 97 fL (80-100); Mean Platelet Volume 9.8 fL (9.1-12.4); NEUTROPHILS ABSOLUTE AUTO 3.88 K/mm3 (1.96-9.15); NEUTROPHILS PERCENT AUTO 54 % (41-73); Platelet Count 279 K/mm3 (150-400); RDW Coefficient Variation 13.6 % (11.7-14.2); RDW Standard Deviation 48.2 fL (35.1-46.3); Red Blood Cell Count 2.92 M/mm3 (3.80-5.20); White Blood Cell Count 7.15 K/mm3 (4.00-11.30)
[2020-11-01 08:12] LABS: Bun/Creatinine Ratio 24.4 (12.0-20.0); Calcium, Blood 8.4 mg/dL (8.5-10.1); Creatinine, Blood 1.19 mg/dL (0.40-1.00); Potassium, Blood 4.6 mmol/L (3.5-5.5)
--- NOTE | 2020-11-01 17:36 | NUR ---
SHIFT SUMMARY: PT ALERT AND ORIENTED X4. ON 2 L O2 SATING ABOVE 92%. TELE SHOWING SINUS RHYTHM WITH PVC'S. HR 80'S. PT DENIES CHEST PAIN. COMPLAINS OF LEFT SIDED PAIN. REPOSITIONING AND MEDICATED PER EMAR. REFUSING TO USE BEDPAN, ATTENDS IN PLACE. PT SITTING AT BEDISDE THIS AFTERNOON. SLEEPING THROUGHOUT THE SHIFT. VITAL SIGNS STABLE WITH CONSISTENT BP IN THE 90'S/50'S. NO ACUTE CHANGES. PRODUCTIVE COUGH. EATING MEALS WELL. ABLE TO CALL APPROPRIATLY. AGITATED AT TIMES WITH CARES QUESTIONS. WILL CONTINUE TO MONITOR AND REPORT OFF.
--- NOTE | 2020-11-02 05:04 | NUR ---
SHIFT SUMMARY NO ACUTE CHANGES THIS SHIFT. VSS. PT REMAINS AXO, IN SR, ON 1-2LNC. BP NORMOTENSIVE. PAIN PRESENTS TO HAVE BEEN BETTER CONTROLLED THIS SHIFT VS LAST AEB PT NOT MOANING YELLING OUT MUCH AND ASKING FOR PAIN MEDS LESS. PT MORE PLEASANT TO STAFF THIS SHIFT WELL. PT REMAINS ON HEPARIN, ADJUSTED ONCE. OTHERWISE, PT USING CALL LIGHT. BEING TURNED BY STAFF, PROPHYLACTIC MEPILEX TO PAINFUL AREA ON SACRUM IN PLACE. BED ALARM IN PLACE. WILL CONTINUE TO MONITOR UNTIL SHIFT CHANGE.
--- NOTE | 2020-11-02 07:06 | NUR ---
0600 meds PT REQUETED TO NOT BE WOKEN UP FOR 0600 MEDS. PT NOW ASLEEP AND HAD NOT SLEPT PRIOR TO THIS. DAY SHIFT RN TO ADMINISTER PER PT REQUEST.
[2020-11-02] MEDS ORDERED: FERSU300 PO (10:53)
[2020-11-02] MEDS ORDERED: LORA10ER PO (10:53)
[2020-11-02] MEDS ORDERED: XARELTO20 MG PO (10:53)
[2020-11-02] MEDS ORDERED: LEVOFLOXACIN250 M2 PO (10:54)
--- NOTE | 2020-11-02 13:51 | NUR ---
DISCHARGE NOTE: PT ALERT AND ORIENTED. VERY AGITATED WITH CARES AND QUESTIONS BUT STATES "I KNOW I AM BEING A PAIN I DON'T MEAN TO". ON 2 L O2 VIA NASAL CANNULA SATING ABOVE 92%. TELE SHOWING SINUS RHYTHM WITH PAC'S. HR 80-90'S. DENIES ANY CHEST PAIN. PAIN ON LEFT SIDE AND BACK, WHICH IS CHRONIC. MEDICATED PER EMAR. ABLE TO REST EARLY AFTERNOON. PAIN DIMINISHING. VITAL SIGNS STABLE. UP TO BSC X2 WITH 2 PERSON ASSIST. SPOKE TO SON ON PHONE. EDUCATED PT ON DISCHARGE INSTRUCTIONS AND QUESTIONS ANSWERED ABOUT MEDICATIONS. IV TAKEN OUT PER PROTOCOL. NO ACUTE CHANGES. WILL CONTINUE TO MONITOR UNTIL TRANSPORT. TRANSPORTATION VIA WHEELCHAIR SET UP.
== END 2020-11-02 14:30 | disposition home or self-care (01) ==
LOC: ER 23:43 → ICUW 23:44 → PCU 10-31 12:40 → ENPENDDIS 11-02 10:36 → PCU 11-02 14:30
PROVIDERS: Emergency Medicine; Internal Medicine; ADMIT Internal Medicine
DX: I22.2 Subsequent non-ST elevation (NSTEMI) myocardial infarction (principal); I21.4 Non-ST elevation (NSTEMI) myocardial infarction; I25.10 Atherosclerotic heart disease of native coronary artery without angina pectoris; I11.0 Hypertensive heart disease with heart failure; I50.32 Chronic diastolic (congestive) heart failure; J44.9 Chronic obstructive pulmonary disease, unspecified; G89.4 Chronic pain syndrome; Z20.822 Contact with and (suspected) exposure to COVID-19; I48.91 Unspecified atrial fibrillation; K21.9 Gastro-esophageal reflux disease without esophagitis; E03.9 Hypothyroidism, unspecified; F17.210 Nicotine dependence, cigarettes, uncomplicated; Z99.81 Dependence on supplemental oxygen; Z79.01 Long term (current) use of anticoagulants; Z95.5 Presence of coronary angioplasty implant and graft
CPT/HCPCS: 0241U; 36415; 36600; 51701; 71045; 80048; 80053; 81001; 82550; 82553; 82803; 83605; 83880; 84484; 85025; 85730; 87040; 87086; 93005; 93010; 94640; 94760; 96374; 96375; 96376; 99285-25; A9270; G0378; J1644; J3010

== ENCOUNTER 2020-11-08 16:02 | Inpatient (IN) | payer OTHER, MEDICARE ==
[~2020-11-08] VITALS: Ht 149.9 cm; Wt 64.2 kg
[~2020-11-08 16:02] MED LIST changes: +BUME1 PO; +Clotrimazole-Be15 GM TOP; +DIPATR PO; +LEVOFLOXACIN250 M2 PO; +LIPITOR80 MG PO; +LORA10ER PO; +Prednisone10 MG PO; +TESSALON PERLE100 MG PO
[2020-11-08 16:33] LABS: BASOPHILS ABSOLUTE AUTO 0.05 K/mm3 (0.00-0.23); BASOPHILS PERCENT AUTO 1 % (0-2); EOSINOPHILS ABSOLUTE AUTO 0.08 K/mm3 (0.00-0.68); EOSINOPHILS PERCENT AUTO 1 % (0-6); Hematocrit 31.4 % (33.0-51.0); Hemoglobin 9.9 g/dL (11.5-16.0); IMMATURE GRAN ABSOLUTE AUTO 0.02 K/mm3 (0.00-0.10); IMMATURE GRAN PERCENT AUTO 0 % (0-1); LYMPHOCYTES ABSOLUTE AUTO 1.05 K/mm3 (0.84-5.20); LYMPHOCYTES PERCENT AUTO 15 % (21-46); MONOCYTES ABSOLUTE AUTO 0.64 K/mm3 (0.16-1.47); MONOCYTES PERCENT AUTO 9 % (4-13); Mean Corpuscular HGB 30.1 pg (26.0-34.0); Mean Corpuscular HGB Conc 31.5 g/dL (31.5-36.5); Mean Corpuscular Volume 95 fL (80-100); Mean Platelet Volume 10.3 fL (9.1-12.4); NEUTROPHILS ABSOLUTE AUTO 5.16 K/mm3 (1.96-9.15); NEUTROPHILS PERCENT AUTO 74 % (41-73); Platelet Count 351 K/mm3 (150-400); RDW Coefficient Variation 13.8 % (11.7-14.2); RDW Standard Deviation 47.9 fL (35.1-46.3); Red Blood Cell Count 3.29 M/mm3 (3.80-5.20)
[2020-11-08 16:48] LABS: Albumin, Blood 2.8 g/dL (3.4-5.0); Albumin/Globulin Ratio 0.8 (0.8-1.8); Bilirubin, Total 0.4 mg/dL (0.1-1.0); Creatinine, Blood 1.42 mg/dL (0.40-1.00); Globulin, Blood 3.7 g/dL (2.2-4.0); Potassium, Blood 4.6 mmol/L (3.5-5.5); Total Protein, Blood 6.5 g/dL (6.4-8.2)
[2020-11-08 17:02] LABS: Troponin I 1.48 ng/mL (0.000-0.040)
[2020-11-09 00:10] LABS: Influenza A, PCR NEGATIVE (NEGATIVE); Influenza B, PCR NEGATIVE (NEGATIVE); Resp Syncytial Virus, PCR NEGATIVE (NEGATIVE); SARS-Cov-2 (COVID-19) PCR, MMC NEGATIVE (NEGATIVE)
--- NOTE | 2020-11-09 02:57 | NUR ---
WASTEWATER DESIGN ENGINEER SUMMARY PT ARRIVED TO FLOOR AT 2315 VIA STRETCHER. A/O X4 AND HAS BEEN UNPLEASANT EVER SINCE. PT WOULD MAKE COMMENTS LIKE "OH HERE WE GO AGAIN" AND ROLL HER EYES WHENEVER STAFF ASKS NAME FOR VERIFICATION OR ASK OTHER QUESTIONS. PT WOULD ALSO CROSS HER ARMS AND LOOK AWAY WHEN NURSE ASKED QUESTION WHEN PT IS A/O AND CAPABLE OF ANSWERING QUESTIONS. PT COMPLAINED MULTIPLE TIMES ABOUT BEING NPO AND THREATENED TO LEAVE IF SHE DIDN'T GET HER COFFEE AND SANDWICH. HOSPITALIST DR. MOLINA NOTIFED AND SAID ITS OKAY TO DC NPO AND PUT IN CARDIAC DIET LONG PT IS BREATHING OKAY. PT'S RESPIRATIONS ARE UNLABORED AND MAINTAINING GOOD O2 SATS ON 3L O2. PT IS ON 3L O2 AT BASELINE. PT GIVEN DECAF COFFEE AND SANDWHICH. PT THEN SAID "I DON'T WANT TO BE ON A CARDIAC DIET, MY DOCTOR SAID I CAN BE ON A REGULAR DIET" IN A RUDE TONE. PT HAS WOUND TO L HEEL. CLEANSED WITH WOUND SPRAY AND WRAPPED WITH EXUDRY PAD AND SECURED WITH CURLEX. PICTURES TAKEN FOR DOCUMENTATION WITH PHOTO CONSENT FORM SIGNED. PT HAS CHRONIC PAIN IN BACK, SPINE, NECK AND NOW L FOOT. MEDICATED ONCE SO FAR WITH OXYCODONE PER EMAR. PT SAYS SHE TAKES OXYCODONE AT HOME AND IS NOT ALLERGIC TO IT. CURRENTLY RESTING IN BED. CALL LIGHT WITHIN REACH, BED ALARM ON. [facility].
[2020-11-09 05:23] LABS: BASOPHILS ABSOLUTE AUTO 0.05 K/mm3 (0.00-0.23); BASOPHILS PERCENT AUTO 1 % (0-2); EOSINOPHILS ABSOLUTE AUTO 0.17 K/mm3 (0.00-0.68); EOSINOPHILS PERCENT AUTO 3 % (0-6); Hematocrit 27.8 % (33.0-51.0); Hemoglobin 8.8 g/dL (11.5-16.0); IMMATURE GRAN ABSOLUTE AUTO 0.02 K/mm3 (0.00-0.10); IMMATURE GRAN PERCENT AUTO 0 % (0-1); LYMPHOCYTES ABSOLUTE AUTO 1.71 K/mm3 (0.84-5.20); LYMPHOCYTES PERCENT AUTO 29 % (21-46); MONOCYTES ABSOLUTE AUTO 0.65 K/mm3 (0.16-1.47); MONOCYTES PERCENT AUTO 11 % (4-13); Mean Corpuscular HGB 29.7 pg (26.0-34.0); Mean Corpuscular HGB Conc 31.7 g/dL (31.5-36.5); Mean Corpuscular Volume 94 fL (80-100); Mean Platelet Volume 10.2 fL (9.1-12.4); NEUTROPHILS ABSOLUTE AUTO 3.34 K/mm3 (1.96-9.15); NEUTROPHILS PERCENT AUTO 56 % (41-73); Platelet Count 320 K/mm3 (150-400); RDW Coefficient Variation 13.8 % (11.7-14.2); RDW Standard Deviation 46.9 fL (35.1-46.3); Red Blood Cell Count 2.96 M/mm3 (3.80-5.20); White Blood Cell Count 5.94 K/mm3 (4.00-11.30)
[2020-11-09 05:46] LABS: Albumin, Blood 2.4 g/dL (3.4-5.0); Albumin/Globulin Ratio 0.7 (0.8-1.8); Bilirubin, Total 0.4 mg/dL (0.1-1.0); Bun/Creatinine Ratio 37.1 (12.0-20.0); Calcium, Blood 8.6 mg/dL (8.5-10.1); Creatinine, Blood 1.4 mg/dL (0.40-1.00); Globulin, Blood 3.4 g/dL (2.2-4.0); Potassium, Blood 4.4 mmol/L (3.5-5.5); Total Protein, Blood 5.8 g/dL (6.4-8.2)
--- NOTE | 2020-11-09 18:18 | NUR ---
SHIFT SUMMARY PT AWAKE AT START OF SHIFT, BUT VERY GRUMPY AND IRRITABLE. PT REFUSING BREAKFAST AT FIRST, JUST COMPLAINING ABOUT EVERYTHING. PT DIDN'T LIKE THE TIMES THAT HER MEDICATIONS WERE ORDERED, SO SHE DIDN'T WANT TO TAKE THEM. PT WAS VERY DIFFICULT TO PLEASE. PT DIDN'T WANT TO GET UP TO VOID AND DIDN'T WANT TO USE A BED MOISE AND SO SHE HELD IT IN HER BLADDER UNTIL SHE WAS MISERABLE. DR MESSER AND DR FALL HERE TO SEE PT. NEW ORDERS GIVEN TO GET PT TO BSC AND BLADDER SCAN. DR MESSER UPDATED THAT IT WAS NOT THAT THE PT COULDN'T VOID, IT WAS THAT SHE WOULDN'T. PT FINALLY AGREED TO GET UP TO BSC, VOIDING 800cc. POST VOID BLADDER SCAN DONE SHOWING 9cc REMAINING. PT BECAME A LOT MORE PLEASANT THE DAY WENT ON, EVEN AGREEING TO A BED BATH AND DRESSING CHANGE TO HER L HEEL. SPUTUM CX OBTAINED AND SENT WELL. BLE'S ELEVATED ON PILLOWS. LLE MUCH MORE RED THAN THE RLE. PT UP TO BSC VOIDING WELL AFTER LASIX. CALL LT IN REACH. ABLE TO MAKE NEEDS KNOWN.
[2020-11-10 05:09] LABS: BASOPHILS ABSOLUTE AUTO 0.05 K/mm3 (0.00-0.23); BASOPHILS PERCENT AUTO 1 % (0-2); EOSINOPHILS ABSOLUTE AUTO 0.28 K/mm3 (0.00-0.68); EOSINOPHILS PERCENT AUTO 4 % (0-6); Hematocrit 28.4 % (33.0-51.0); IMMATURE GRAN ABSOLUTE AUTO 0.02 K/mm3 (0.00-0.10); IMMATURE GRAN PERCENT AUTO 0 % (0-1); LYMPHOCYTES ABSOLUTE AUTO 2.17 K/mm3 (0.84-5.20); LYMPHOCYTES PERCENT AUTO 31 % (21-46); MONOCYTES ABSOLUTE AUTO 0.81 K/mm3 (0.16-1.47); MONOCYTES PERCENT AUTO 12 % (4-13); Mean Corpuscular HGB 30.2 pg (26.0-34.0); Mean Corpuscular HGB Conc 31.7 g/dL (31.5-36.5); Mean Corpuscular Volume 95 fL (80-100); Mean Platelet Volume 10.1 fL (9.1-12.4); NEUTROPHILS PERCENT AUTO 53 % (41-73); Platelet Count 307 K/mm3 (150-400); RDW Coefficient Variation 13.8 % (11.7-14.2); RDW Standard Deviation 47.9 fL (35.1-46.3); Red Blood Cell Count 2.98 M/mm3 (3.80-5.20); White Blood Cell Count 7.03 K/mm3 (4.00-11.30)
[2020-11-10 05:30] LABS: Albumin, Blood 2.4 g/dL (3.4-5.0); Albumin/Globulin Ratio 0.7 (0.8-1.8); Bilirubin, Total 0.4 mg/dL (0.1-1.0); Bun/Creatinine Ratio 35.9 (12.0-20.0); Calcium, Blood 8.9 mg/dL (8.5-10.1); Creatinine, Blood 1.42 mg/dL (0.40-1.00); Globulin, Blood 3.4 g/dL (2.2-4.0); Potassium, Blood 4.5 mmol/L (3.5-5.5); Total Protein, Blood 5.8 g/dL (6.4-8.2)
--- NOTE | 2020-11-10 06:43 | NUR ---
SHIFT SUMMARY PATIENT ALERT AND ORIENTED. WAS MEDICATED PER EMAR FOR PAIN. HAD NO COMPLAINTS OF CHEST PAIN OR SHORTNESS OF BREATH. DRESSING ON L FOOT CHANGED THE WOUND LEAKED THROUGH THE PREVIOUS ONE. IV PATENT AND FLUSHED. BED IN LOWEST POSITION WITH WHEELS LOCKED AND ALARM ON. CALL LIGHT WITHIN REACH. REPORT GIVEN TO ONCOMING RN.
[2020-11-10] MEDS ORDERED: LEVSOD150 PO (10:04)
[2020-11-10] MEDS ORDERED: DOCUZEN 8.6-501 EACH PO (10:06)
[2020-11-10] MEDS ORDERED: TORSE20 PO (10:08)
--- NOTE | 2020-11-10 15:37 | NUR ---
DRESSING CHANGE CHANGED THE PTS LEFT FOOT DRESSING USEING CLEAN TECHNIQUE, THE PT TOLERATED WELL, THE WOUND WAS COVERED WITH NON ADHESIVE PAD AND AN EXUDRY PAD THEN WRAPPED IN FLUFF
[2020-11-10 16:52] LABS: Bun/Creatinine Ratio 37.6 (12.0-20.0); Creatinine, Blood 1.25 mg/dL (0.40-1.00); Potassium, Blood 3.8 mmol/L (3.5-5.5)
--- NOTE | 2020-11-10 17:29 | NUR ---
PERMISSION FOR CARE I RECEIVED PERMISSION FROM THIS PERMISSION TO PROVIDE CARE FOR HER TODAY, 11/10/2020.
--- NOTE | 2020-11-10 17:40 | NUR ---
PT IS A/OX3, COOPERATIVE, CAN BE IRRITABLE AT TIMES PT IS A 2 PERSON ASSIST UP TO THE BATHROOM, PT HAS A LEFT FOOT WOUND THAT WAS REDRESSED THIS AFTERNOON THE PT TOLERATED WELL, THE PTS HEELS WERE FLOATED OFF THE BED T/O THE DAY WHILE IN BED, THE PT WAS MEDICATED FOR PAIN X1 SO FAR TODAY, PT REPORTED PASSING GAS BUT STILL NO BM, THE PT WORKED WITH THE PHYSICAL AND OCCUPATIONAL THERAPIST TODAY, CALL LIGHT IN REACH, WILL CONTINUE TO MONITOR AND ASSESS FOR CHANGES
--- NOTE | 2020-11-10 20:50 | NUR ---
PT REFUSED LOMOTIL STATING SHE "DIDN'T NEED IT" AND WANTED TO STOOL SOFTENERS ALONE D/T "NEEDING TO HAVE A BM".
--- NOTE | 2020-11-11 05:13 | NUR ---
SUMMARY: PT A/OX3 BUT IS FORGETFULL AT TIMES W/SOME TROUBLE FINDING WORDS. SHE'S PLEASANT AND COOPERATIVE W/CARE BUT CAN BE CONTANKEROUS W/ADL'S AND POSITIONING. SNACKS AND DRINKS PROVIDED PRN PER PT REQUEST. TURN SCHEDULE WAS MAINTAINED AND PULLUP CHANGED PRN FOR INCONTINENCE. MEPILEX TO COCCYX IS C/D/I. BLE CELLULITIS PERSISTS BUT HAS IMPROVED W/DIURESIS. LEGS ARE RED AND SCALEY W/L.FOOT WRAPPED D/T L.HEEL ULCER. DX REMAINS C/D/I AND HEELS ELEVATED ON PILLOWS IN BED. SHE'S NSR AT 70'S BPM PER TELEMETRY. METOPROLOL HELD/PT REFUSED D/T SBP 91 AT HS. BP IMPROVED TO 120/75 THIS AM. SPO2 WNL ON HOME DOSE OF 3L O2 VIA NC. RT PROVIDED BX TX'S PER EMAR. SHE C/O CONT'D PAIN FROM L.HIP DOWN TO FOOT W/ROXICODONE PRN RECIEVED FOR GOOD EFFECT. VSS/AFEBRILE AND NO ACUTE CHANGES. WCTM AND REPORT TO DAY RN.
[2020-11-11 05:21] LABS: BASOPHILS ABSOLUTE AUTO 0.05 K/mm3 (0.00-0.23); BASOPHILS PERCENT AUTO 1 % (0-2); EOSINOPHILS ABSOLUTE AUTO 0.33 K/mm3 (0.00-0.68); EOSINOPHILS PERCENT AUTO 6 % (0-6); Hematocrit 29.6 % (33.0-51.0); Hemoglobin 9.4 g/dL (11.5-16.0); IMMATURE GRAN ABSOLUTE AUTO 0.01 K/mm3 (0.00-0.10); IMMATURE GRAN PERCENT AUTO 0 % (0-1); LYMPHOCYTES ABSOLUTE AUTO 2.05 K/mm3 (0.84-5.20); LYMPHOCYTES PERCENT AUTO 34 % (21-46); MONOCYTES PERCENT AUTO 10 % (4-13); Mean Corpuscular HGB 30.5 pg (26.0-34.0); Mean Corpuscular HGB Conc 31.8 g/dL (31.5-36.5); Mean Corpuscular Volume 96 fL (80-100); Mean Platelet Volume 9.8 fL (9.1-12.4); NEUTROPHILS ABSOLUTE AUTO 2.92 K/mm3 (1.96-9.15); NEUTROPHILS PERCENT AUTO 49 % (41-73); Platelet Count 312 K/mm3 (150-400); RDW Coefficient Variation 13.8 % (11.7-14.2); RDW Standard Deviation 48.5 fL (35.1-46.3); Red Blood Cell Count 3.08 M/mm3 (3.80-5.20); White Blood Cell Count 5.96 K/mm3 (4.00-11.30)
[2020-11-11 05:45] LABS: Calcium, Blood 8.8 mg/dL (8.5-10.1); Creatinine, Blood 1.08 mg/dL (0.40-1.00); Potassium, Blood 3.6 mmol/L (3.5-5.5)
--- NOTE | 2020-11-11 17:49 | NUR ---
PT IS A/OX3, PLEASANT AND COOPERATIVE, CAN BE SHORT TEMPERED AT TIMES, PT APPEARS TO BE BREATHING EASILY AT REST ON 2L/MIIN O2 VIA NC, THE PT WAS MEDICATED FOR LEFT LEG PAIN X1 SO FAR THIS SHIFT, THE PT HAS BEEN UP TO THE BSC AND TO THE CHAIR TODAY, THE PT WORKED WITH BOTH THE PHYSICAL AND OCCUPATIONAL THERAPIST TODAY, PTS LEFT FOOT/HEEL DRESSING WAS REPLACED TODAY, USEING CLEAN TECHNIQUE THE PT TOLERATED THE PROCEDURE WELL, CALL LIGHT IN REACH, WILL CONTINUE TO MONITOR AND ASSESS FOR CHANGES, PT HAD FAMILY VISIT TODAY
[2020-11-12 05:58] LABS: BASOPHILS ABSOLUTE AUTO 0.04 K/mm3 (0.00-0.23); BASOPHILS PERCENT AUTO 1 % (0-2); EOSINOPHILS ABSOLUTE AUTO 0.35 K/mm3 (0.00-0.68); EOSINOPHILS PERCENT AUTO 5 % (0-6); Hematocrit 29.1 % (33.0-51.0); Hemoglobin 9.4 g/dL (11.5-16.0); IMMATURE GRAN ABSOLUTE AUTO 0.01 K/mm3 (0.00-0.10); IMMATURE GRAN PERCENT AUTO 0 % (0-1); LYMPHOCYTES ABSOLUTE AUTO 1.93 K/mm3 (0.84-5.20); LYMPHOCYTES PERCENT AUTO 29 % (21-46); MONOCYTES ABSOLUTE AUTO 0.57 K/mm3 (0.16-1.47); MONOCYTES PERCENT AUTO 9 % (4-13); Mean Corpuscular HGB 30.3 pg (26.0-34.0); Mean Corpuscular HGB Conc 32.3 g/dL (31.5-36.5); Mean Corpuscular Volume 94 fL (80-100); Mean Platelet Volume 10.4 fL (9.1-12.4); NEUTROPHILS ABSOLUTE AUTO 3.74 K/mm3 (1.96-9.15); NEUTROPHILS PERCENT AUTO 56 % (41-73); Platelet Count 295 K/mm3 (150-400); RDW Coefficient Variation 13.7 % (11.7-14.2); RDW Standard Deviation 46.8 fL (35.1-46.3); White Blood Cell Count 6.64 K/mm3 (4.00-11.30)
[2020-11-12 06:09] LABS: Bun/Creatinine Ratio 31.1 (12.0-20.0); Calcium, Blood 8.5 mg/dL (8.5-10.1); Creatinine, Blood 1.22 mg/dL (0.40-1.00); Potassium, Blood 4.2 mmol/L (3.5-5.5)
--- NOTE | 2020-11-12 06:36 | NUR ---
SHIFT SUMMARY PT IS A 75 Y/O FEMALE, ADMITTED FOR PNA. SHE IS A&O X 3, 2PA TO [facility] [place]. SHE WAS MEDICATED ONCE FOR CHRONIC BACK AND L HEEL PAIN WITH PRN OXYCODONE. SHE WAS ALSO MEDICATED ONCE AT HS FOR NAUSEA WITH PRN ZOFRAN. NO C/O SOB. BP THIS AM WAS LOW IN THE 90S SYSTOLIC. ALL OTHER VITALS STABLE. PT SLEPT WELL THROUGH THE NIGHT. NO ACUTE CHANGES IN PT CONDITION NOTED DURING THE NIGHT. WILL CONTINUE TO MONITOR AND TREAT PER EMAR UNTIL HAND OFF TO DAY SHIFT RN.
--- NOTE | 2020-11-12 09:24 | NUR ---
TALKED TO DR BANDA ABOUT MEDS. TAKES METOPROLOL 12.5 AND IV LASIX 40MG. VS 94/53 -67. HOLD METOPROLOL AND GIVE LASIX. BNP DECREASING WAS 2100 DOWN TO 1600, LUNGS COARSE. WCTM
--- NOTE | 2020-11-12 15:10 | NUR ---
NOTIFED PATIENT HAD SHORT RUN OF BIGEMINY AND THEN 10 BEATS OF SVT AROUND 200, THEN BACK TO 70'S. PATIENT HAD NO SYPMTOMS. VISITING WITH ADULT FRIEND. WILL NOTIFIY IF HAPPENS AGAIN.
--- NOTE | 2020-11-12 15:37 | NUR ---
NOTIFIED PATIENT HAD 4 SEC RUN TACH AT 203. ORDER BMP, MG AND EKG.
[2020-11-12 16:42] LABS: Bun/Creatinine Ratio 27.1 (12.0-20.0); Calcium, Blood 8.7 mg/dL (8.5-10.1); Creatinine, Blood 1.4 mg/dL (0.40-1.00); Magnesium, Blood 1.7 mg/dL (1.6-2.4); Potassium, Blood 4.2 mmol/L (3.5-5.5)
--- NOTE | 2020-11-12 17:04 | NUR ---
AWARE OF AFTERNOON VS. BP 93/56-76.
--- NOTE | 2020-11-12 17:48 | NUR ---
ALERT. ORIENTED. IRRITABLE. MEDICATED FOR PAIN WITH GOOD RESULTS. POSSIBLE D'C NEXT FEW DAYS TO SNF WITH PATIENT AGREEING TO GO. UNLABORED RESPIRATIONS. WCTM
--- NOTE | 2020-11-13 04:42 | NUR ---
OPERATIONS RESEARCH GROUP MANAGER SUMMARY PT A/O X4, EASILY AGITATED. NOT PLEASANT TO STAFF MEMBERS. MEDICATED FOR PAIN ONCE OVERNIGHT. REPOSITIONED FREQUENTLY. DENIES CHEST PAIN, SOB. CONTINUES TO BE ON 3L O2 VIA NC SATTING IN THE 'S. BED CRADLE IN PLACE TO HELP COMBAT PAIN IN BILATERAL FEET. PT HAS CHRONIC OVERALL PAIN. NO ACUTE CHANGES, CALL LIGHT WITHIN REACH. [facility].
[2020-11-13 06:05] LABS: BASOPHILS ABSOLUTE AUTO 0.03 K/mm3 (0.00-0.23); BASOPHILS PERCENT AUTO 0 % (0-2); EOSINOPHILS ABSOLUTE AUTO 0.36 K/mm3 (0.00-0.68); EOSINOPHILS PERCENT AUTO 5 % (0-6); Hematocrit 27.2 % (33.0-51.0); Hemoglobin 8.7 g/dL (11.5-16.0); IMMATURE GRAN ABSOLUTE AUTO 0.03 K/mm3 (0.00-0.10); IMMATURE GRAN PERCENT AUTO 0 % (0-1); LYMPHOCYTES ABSOLUTE AUTO 1.69 K/mm3 (0.84-5.20); LYMPHOCYTES PERCENT AUTO 23 % (21-46); MONOCYTES ABSOLUTE AUTO 0.54 K/mm3 (0.16-1.47); MONOCYTES PERCENT AUTO 7 % (4-13); Mean Corpuscular HGB 30.2 pg (26.0-34.0); Mean Corpuscular Volume 94 fL (80-100); Mean Platelet Volume 9.8 fL (9.1-12.4); NEUTROPHILS ABSOLUTE AUTO 4.69 K/mm3 (1.96-9.15); NEUTROPHILS PERCENT AUTO 64 % (41-73); Platelet Count 313 K/mm3 (150-400); RDW Coefficient Variation 13.7 % (11.7-14.2); RDW Standard Deviation 47.6 fL (35.1-46.3); Red Blood Cell Count 2.88 M/mm3 (3.80-5.20); White Blood Cell Count 7.34 K/mm3 (4.00-11.30)
[2020-11-13 06:28] LABS: Bun/Creatinine Ratio 29.9 (12.0-20.0); Calcium, Blood 8.8 mg/dL (8.5-10.1); Creatinine, Blood 1.27 mg/dL (0.40-1.00); Potassium, Blood 3.7 mmol/L (3.5-5.5)
--- NOTE | 2020-11-13 18:10 | NUR ---
Received a call from pt's nurse Prudence ThorntonRN. Pt has consult placed, and Prema made 2nd request with Code Status concerns. Pt began our visit with short answers, but began to open up and speak about her life. Provided therapeutic listening. Pt currently living with her son, who hasn't been up to visit her in the hospital because they have no vehicle. She is ruminating on possibility of going to rehabilitation at a SNF after hospitalization. She states she will be unable to go home without getting stronger first. We discussed pt's POLST status, and she did agree it's time to review. She did not fully understand that the POLST DNR vs FULL CODE was relating to what would be done next if she was found unresponsive, not breathing with no pulse. She decided to change to DNR with [facility]. Assisted her in filling out updated POLST. Left for doctor to sign. Plan to follow up with pt tomorrow, as she became tearful during our talk today, stating she doesn't want to continue to show such a hard exterior to others, but that she has physical pain frequently, and gets impatient with waiting on others for assistance.
--- NOTE | 2020-11-13 18:26 | NUR ---
ALERT. ORIENTED. 2 PERSON ASSIST TO BSC. ON OXYGEN. IRRITABLE. DRESSING CHANGED TODAY TO LEFT FOOT. MEDICATED FOR PAIN WITH MODERATE RESULTS. PATIENT CAN SLEEP AFTER GETTING PAIN MEDS. BUT STS THEY DO NOT WORK. TELE ON. [facility]
--- NOTE | 2020-11-14 05:20 | NUR ---
YARN WEIGHT AND STRENGTH TESTER SUMMARY PT A/O X4. CAN BE DIFFICULT AT TIMES AND EASILY IRRITATED. PT REFUSED TO BE REPOSITIONED A COUPLE OF TIMES. PT REFUSED HER AM MEDS BECAUSE SHE WASN'T SITTING UP HIGH ENOUGH FOR HER TO SWALLOW PILLS AND REFUSED TO BE REPOSITIONED. PT STATED "I'M DON'T WANT MY MEDS IF THAT MEANS YOU'RE GOING TO REPOSITION ME." CONTINUES TO BE HYPOTENSIVE. SR IN THE 80'S, DENIES CHEST PAIN, SOB, NAUSEA. CONTINUES TO BE ON 3L O2 VIA NC WHICH IS BASELINE PER PT. L HEEL DRESSING IS C.D.I. MEDICATED FOR PAIN ONCE OVERNIGHT. CALL LIGHT WITHIN REACH, BED ALARM ON.
--- NOTE | 2020-11-14 12:43 | NUR ---
Made a visit to pt today; she was tearful upon my arrival, states she is not going to inpatient rehab after all, and she states she will not be able to get stronger. Noted she is scheduled to go home with Home Health and can receive PT at home. She states she would be more interested in going to outpatient PT if that is an option. Will discuss with THADDEUS Martínez.
--- NOTE | 2020-11-14 15:50 | NUR ---
THE PATIENT CAN BE QUITE IRRITABLE, BUT COOPERATIVE AT TIMES TOO. SHE IS STUBBORN IN THE FACT THAT SHE WILL ONLY ALLOW CARE TO BE PROVIDED ON HER TERMS AND AT HER TIME; SAME WITH TAKING HER MEDICATION. SHE DID ALLOW ME TO CHANGE THE DRESSING TO THE ULCER ON HER LEFT HEEL TODAY. THE ULCER APPEARS TO BE A DTI AND IS CLOSED WITH SMALL AMOUNT OF DRAINAGE; FOOT IS FLOATED IN THE AIR USING A PILLOW BELOW HER LOWER LEG. PATIENT IS ALERT AND ORIENTED AND ABLE TO CALL FOR STAFF ASSIST NEEDED. PATIENT CONTINUES ON IV ABX WITHOUT S/SX OF ADVERSE REACTIONS NOTED OR REPORTED. BP REMAINS HYPOTENSIVE, HOWEVER THAT APPEARS TO BE HER BASELINE WHILE IN THE HOSPITAL. PATIENT IS RESTING IN BED AT THIS TIME. DISCHARGE PLANNERS ARE WORKING TO POSSIBLY DISCHARGE PATIENT TO A SNF FOR CONTINUED REHAB BEFORE PATIENT IS TO RETURN HOME. CALL LIGHT IS WITHIN REACH.
--- NOTE | 2020-11-15 05:34 | NUR ---
SHIFT SUMMARY PT IS A 75 Y/O FEMALE, ADMITTED FOR PNA AND CURRENTLY AWAITING SNF PLACEMENT. SHE IS A&O X 3, IRRITABLE AT TIMES WITH STAFF BUT COOPERATIVE WITH CARE. SHE WAS MEDICATED TWICE FOR L HEEL AND BACK PAIN WITH PRN OXYCODONE. NO C/O NAUSEA OR SOB. PT IS ON BASELINE O2 AT 3L VIA NC. VITAL SIGNS STABLE. TELE SHOWED NSR @ 71 BPM. PT SLEPT OFF AND ON DURING THE NIGHT. NO ACUTE CHANGES IN PT CONDITION NOTED. WILL CONTINUE TO MONITOR AND TREAT PER EMAR UNTIL HAND OFF TO DAY SHIFT RN.
--- NOTE | 2020-11-15 17:35 | NUR ---
SUMMARY PT RESTING QUIETLY IN BED, WAKES EASILY, MED PER EMAR FOR PAIN, DRESSING TO L HEEL CHANGED, PT WORKED WITH THERAPY, RESISTANT TO SOME CARES, COOPERATIVE WITH CARE FOR THE MOST PART, WILL CONT TO MONITOR
--- NOTE | 2020-11-16 06:17 | NUR ---
SHIFT SUMMARY PT IS A 75 Y/O FEMALE, ADMITTED FOR PNA, CURRENTLY AWAITING SNF PLACEMENT. SHE IS A&O X 4, IRRITABLE AT TIMES BUT COOPERATIVE WITH CARE. SHE WAS MEDICATED ONCE AT HS FOR CHRONIC PAIN WITH PRN OXYCODONE. NO C/O NAUSEA OR SOB. PT IS ON 3L OF O2 VIA NC, WHICH IS HER NORMAL HOME DOSE. BP HAS BEEN LOW IN THE 80-90S SYSTOLIC. EVENING METOPROLOL HELD. ALL OTHER VITALS STABLE. NO ACUTE CHANGES IN PT CONDITION NOTED. WILL CONTINUE TO MONITOR AND TREAT PER EMAR UNTIL HAND OFF TO DAY SHIFT RN.
--- NOTE | 2020-11-16 17:12 | NUR ---
SUMMARY PT RESTING IN BED WATCHING TV, PT HAS BEEN UP TO THE CHAIR AND UP TO THE COMMODE TODAY, PT HAS SPOKEN WITH MULTIPLE PEOPLE ON THE PHONE TODAY, DRESSING TO THE L HEEL CHANGED TODAY, PT MED PER EMAR FOR PAIN, VSS, WILL CONT TO MONITOR
--- NOTE | 2020-11-17 06:29 | NUR ---
SHIFT SUMMARY PT IS A 75 Y/O FEMALE, ADMITTED FOR PNA AND CURRENTLY AWAITING REHAB PLACEMENT. SHE IS A&O X 4, 2P MAX STAND AND PIVOT TO THE BSC. SHE WAS MEDICATED ONCE FOR CHRONIC BACK PAIN AND LLE PAIN AT HS. NO C/O NAUSEA OR SOB. PT IS ON 3L OF O2 VIA NC, WHICH IS HER NORMAL HOME DOSE. VITAL SIGNS STABLE. NO ACUTE CHANGES IN PT CONDITION NOTED DURING THE NIGHT. WILL CONTINUE TO MONITOR AND TREAT PER EMAR UNTIL HAND OFF TO DAY SHIFT RN.
[2020-11-17] MEDS ORDERED: IPRAT-ALBUT 0.5-3 ML INH (14:33)
[2020-11-17] MEDS ORDERED: PANT40 PO (14:34)
[2020-11-17] MEDS ORDERED: POTA10T PO (14:34)
[2020-11-17 16:20] LABS: Influenza A, PCR NEGATIVE (NEGATIVE); Influenza B, PCR NEGATIVE (NEGATIVE); Resp Syncytial Virus, PCR NEGATIVE (NEGATIVE); SARS-Cov-2 (COVID-19) PCR, MMC NEGATIVE (NEGATIVE)
--- NOTE | 2020-11-17 19:17 | NUR ---
PT WAS DISCHARGED TO [facility] VIA TRANSPORTATION SERVICES AND WHEELCHAIR WITH BELONGINGS AT SIDE. REPORT WAS GIVEN TO RUBIN AT [facility]. PT WAS ALERT AND ORIENTED X4 AT TIME OF DC. IV WAS DC'D AND WNL. EDUCATION WAS PROVIDED AND PT WAS ABLE TO TEACH BACK.
== END 2020-11-17 18:15 | DRG 177 ==
LOC: ER 16:02 → MEDS 20:27
PROVIDERS: Family Medicine; Internal Medicine; Student in an Organized Health Care Education/Training Program; ADMIT Internal Medicine
DX: J69.0 Pneumonitis due to inhalation of food and vomit (principal); I21.4 Non-ST elevation (NSTEMI) myocardial infarction; J96.21 Acute and chronic respiratory failure with hypoxia; I50.33 Acute on chronic diastolic (congestive) heart failure; N17.9 Acute kidney failure, unspecified; L03.116 Cellulitis of left lower limb; I11.0 Hypertensive heart disease with heart failure; J18.9 Pneumonia, unspecified organism; D64.9 Anemia, unspecified; I25.10 Atherosclerotic heart disease of native coronary artery without angina pectoris; J44.9 Chronic obstructive pulmonary disease, unspecified; I08.0 Rheumatic disorders of both mitral and aortic valves; I27.20 Pulmonary hypertension, unspecified; Z20.822 Contact with and (suspected) exposure to COVID-19; Z66 Do not resuscitate; M19.90 Unspecified osteoarthritis, unspecified site; F32.9 Major depressive disorder, single episode, unspecified; E03.9 Hypothyroidism, unspecified; K21.9 Gastro-esophageal reflux disease without esophagitis; Z86.73 Personal history of transient ischemic attack (TIA), and cerebral infarction without residual deficits; Z79.82 Long term (current) use of aspirin; Z79.899 Other long term (current) drug therapy; Z88.5 Allergy status to narcotic agent; Z88.0 Allergy status to penicillin; Z88.8 Allergy status to other drugs, medicaments and biological substances; Z90.710 Acquired absence of both cervix and uterus; Z90.49 Acquired absence of other specified parts of digestive tract; D63.8 Anemia in other chronic diseases classified elsewhere; F17.210 Nicotine dependence, cigarettes, uncomplicated; Z88.2 Allergy status to sulfonamides; I48.91 Unspecified atrial fibrillation; Z99.81 Dependence on supplemental oxygen
CPT/HCPCS: 0241U; 36415; 71046; 71250; 73630; 80048; 80053; 83735; 83880; 84145; 84484; 85025; 87070; 87205; 92526; 92610; 93005; 93010; 94640; 94760; 96365; 96366; 97110; 97129; 97162; 97166; 97530; 97535; 99285-25; A9270; J0456; J1940; J1956; J2405; J3370; J3475; J7050

== ENCOUNTER 2020-11-22 17:37 | Emergency (ER) | payer OTHER ==
[~2020-11-22] VITALS: Ht 152.4 cm; Wt 59.0 kg
[~2020-11-22 17:37] MED LIST changes: +DOCUZEN 8.6-501 EACH PO; +IPRAT-ALBUT 0.5-3 ML INH; +POTA10T PO
[2020-11-22 18:37] LABS: BASOPHILS ABSOLUTE AUTO 0.03 K/mm3 (0.00-0.23); BASOPHILS PERCENT AUTO 0 % (0-2); EOSINOPHILS ABSOLUTE AUTO 0.04 K/mm3 (0.00-0.68); EOSINOPHILS PERCENT AUTO 0 % (0-6); Hematocrit 32.4 % (33.0-51.0); Hemoglobin 10.2 g/dL (11.5-16.0); IMMATURE GRAN ABSOLUTE AUTO 0.05 K/mm3 (0.00-0.10); IMMATURE GRAN PERCENT AUTO 1 % (0-1); LYMPHOCYTES ABSOLUTE AUTO 1.22 K/mm3 (0.84-5.20); LYMPHOCYTES PERCENT AUTO 13 % (21-46); MONOCYTES ABSOLUTE AUTO 0.62 K/mm3 (0.16-1.47); MONOCYTES PERCENT AUTO 6 % (4-13); Mean Corpuscular HGB 30.1 pg (26.0-34.0); Mean Corpuscular HGB Conc 31.5 g/dL (31.5-36.5); Mean Corpuscular Volume 96 fL (80-100); Mean Platelet Volume 10.1 fL (9.1-12.4); NEUTROPHILS ABSOLUTE AUTO 7.67 K/mm3 (1.96-9.15); NEUTROPHILS PERCENT AUTO 80 % (41-73); Platelet Count 360 K/mm3 (150-400); RDW Coefficient Variation 14.3 % (11.7-14.2); Red Blood Cell Count 3.39 M/mm3 (3.80-5.20); White Blood Cell Count 9.63 K/mm3 (4.00-11.30)
[2020-11-22 18:45] LABS: Calcium, Ionized (POC) 1.01 mmol/L (1.10-1.46); Chloride (POC) 98 mmol/L (98-108); Creatinine (POC) 2.1 mg/dL (0.6-1.0); Glucose (ISTAT POC) 139 mg/dL (70-99); Hemoglobin (POC) 10.9 g/dL (12.0-16.0); Potassium (POC) 4.7 mmol/L (3.5-5.5); Sodium (POC) 134 mmol/L (135-148); Total CO2 (POC) 28 mmol/L (21-32)
[2020-11-22 18:50] LABS: Albumin, Blood 2.9 g/dL (3.4-5.0); Albumin/Globulin Ratio 0.8 (0.8-1.8); Bilirubin, Total 0.5 mg/dL (0.1-1.0); Bun/Creatinine Ratio 37.8 (12.0-20.0); Calcium, Blood 8.9 mg/dL (8.5-10.1); Creatinine, Blood 1.93 mg/dL (0.40-1.00); Globulin, Blood 3.6 g/dL (2.2-4.0); Magnesium, Blood 2.6 mg/dL (1.6-2.4); Potassium, Blood 4.9 mmol/L (3.5-5.5); Total Protein, Blood 6.5 g/dL (6.4-8.2); Troponin I 0.161 ng/mL (0.000-0.040)
== END 2020-11-23 00:58 ==
LOC: ER 17:37
PROVIDERS: Emergency Medicine
DX: I48.91 Unspecified atrial fibrillation (principal); I46.2 Cardiac arrest due to underlying cardiac condition; I11.0 Hypertensive heart disease with heart failure; I50.32 Chronic diastolic (congestive) heart failure; K21.9 Gastro-esophageal reflux disease without esophagitis; J44.9 Chronic obstructive pulmonary disease, unspecified; E03.9 Hypothyroidism, unspecified; G89.29 Other chronic pain; F17.210 Nicotine dependence, cigarettes, uncomplicated; I25.2 Old myocardial infarction; Z88.8 Allergy status to other drugs, medicaments and biological substances; Z88.5 Allergy status to narcotic agent; Z88.1 Allergy status to other antibiotic agents; Z88.0 Allergy status to penicillin; Z79.82 Long term (current) use of aspirin; Z79.899 Other long term (current) drug therapy; Z79.01 Long term (current) use of anticoagulants; Z86.73 Personal history of transient ischemic attack (TIA), and cerebral infarction without residual deficits
CPT/HCPCS: 31500; 36415; 80047; 80053; 83735; 83880; 84484; 85014; 85025; 87040; 92950; 93005; 93010; 94002; 96374-59; 96375-59; 96376-59; 99285-25; J0171; J2370; J7030; J7040